=== PATIENT | male | born 1950 | race Caucasian/White ===

== ENCOUNTER 2022-12-09 13:54 | Outpatient (OUT) | payer MEDICARE, OTHER, SELFPAY ==
--- NOTE | 2022-12-09 13:57 | US_ITS ---
The [address] [address] Patient Name: NANCY WALLS MRN: [id number] date: 1950 Sex: M Assigned Patient Location: US Current Patient Location: US Accession/Order Number: [id number] Exam Date: 12/09/2022 14:00 Report Date: 12/12/2022 09:04 At the request of: BENIGNO ZALDIVAR Procedure: US scrotum doppler EXAM: US scrotum doppler HISTORY: Epididymal cyst N50.3 COMPARISON: None. TECHNIQUE: Grayscale, color and Doppler FINDINGS: The right testicle is normal in size, contour and homogeneous echotexture measuring 4.4 x 2.1 x 3.2 cm. No focal mass. Normal color and Doppler flow The right epididymis is normal in appearance. No right hydrocele or varicocele. The left testicle is normal in size, contour and homogeneous echotexture measuring 4.5 x 2.3 x 3.0 cm. No focal mass. Normal color and Doppler flow The left epididymis is significant for a 7 mm area of anechoic echogenicity, epididymal cyst. No left hydrocele or varicocele. US/US scrotum doppler IMPRESSION: 7 mm left epididymal cyst Electronically authenticated by: NASEEM STEEN Date: 12/12/2022 09:04
== END 2022-12-09 13:55 | disposition home or self-care (01) ==
LOC: US 13:54
PROVIDERS: PCP Family Medicine; Visit Provider Family Medicine
DX: N50.3 Cyst of epididymis (principal)
CPT/HCPCS: 76870; 93976

== ENCOUNTER 2022-12-21 10:28 | Outpatient (OUT) | payer MEDICARE, OTHER, SELFPAY ==
[2022-12-22 11:09] LABS: PSA, Free 0.83 ng/mL; Prostate Specific Ag 4.8 ng/mL (0.0-4.0)
== END 2022-12-21 10:29 | disposition home or self-care (01) ==
LOC: LAB 10:29
PROVIDERS: PCP Family Medicine
DX: N40.1 Benign prostatic hyperplasia with lower urinary tract symptoms (principal); R97.20 Elevated prostate specific antigen [PSA]
CPT/HCPCS: 36415; 84153; 84154

== ENCOUNTER 2023-10-05 11:01 | Outpatient (OUT) | payer MEDICARE, OTHER, SELFPAY ==
[2023-10-07 07:08] LABS: QuantiFERON-TB Gold Plus Negative (Negative)
== END 2023-10-05 11:02 | disposition home or self-care (01) ==
LOC: LAB 11:03
PROVIDERS: PCP Family Medicine
DX: L40.0 Psoriasis vulgaris (principal)
CPT/HCPCS: 36415; 86480

== ENCOUNTER 2024-01-04 10:06 | Outpatient (OUT) | payer MEDICARE, SELFPAY ==
--- OUTSIDE RECORDS SUMMARY | 2024-01-04 10:16 | XMS_ITS | CCD ---
Author Organization [facility] Care Team Providers Care Glass Sagger Name Role Phone PHYSICIAN, DEFAULT Unavailable Unavailable PHYSICIAN, DEFAULT Unavailable Unavailable SKIE, ROHIT Unavailable Unavailable SKIE, ROHIT Unavailable Unavailable HOY, BENIGNO Unavailable Unavailable HOY BENIGNO Unavailable Unavailable NC Unavailable Unavailable SKIE, ROHIT Unavailable Unavailable NC Unavailable Unavailable DELMACHRISTIANO ROBERTSSHI Unavailable Unavailable Benigno Escobar Primary Care Physician MD Benigno Escobar Primary Care Provider [phone] MD Geovanni Cuenca Jr Attending Provider [phone] ZEN ., DR PELAEZ Admitting Unavailable HOY ., DR PELAEZ Attending Unavailable HOY ., DR PELAEZ Primary Care Unavailable HOY ., DR PELAEZ Consulting Unavailable MISC, DR CHAIREZ Admitting Unavailable MISC, DR CHAIREZ Attending Unavailable HOY ., DR PELAEZ Primary Care Unavailable MISC, DR CHAIREZ Consulting Unavailable HOY ., DR PELAEZ Admitting Unavailable HOY ., DR PELAEZ Attending Unavailable HOY ., DR PELAEZ Referring Unavailable HOY ., DR PELAEZ Primary Care Unavailable HOY ., DR PELAEZ Consulting Unavailable MISC, DR CHAIREZ Admitting Unavailable MISC, DR CHAIREZ Attending Unavailable HOY ., DR PELAEZ Primary Care Unavailable MISC, DR CHAIREZ Consulting Unavailable BANG CAROLINA ., DR EGOVANNI Bowen Admitting Unavaila ble BANG Singh, DR GEOVANNI Bowen Attending Unavaila ble ZEN ., DR PELAEZ Primary Care Unavailable BANG Singh, DR GEOVANNI Bowen Consulting Unavaila ble BANG Singh, DR GEOVANNI Bowen Admitting Unavaila ble BANG Singh, DR GEOVANNI Bowen Attending Unavaila ble ZEN ., DR PELAEZ Primary Care Unavailable BANG Singh, DR GEOVANNI Bowen Consulting Unavaila ble BANG Singh, DR GEOVANNI Bowen Admitting Unavaila ble BANG Singh, DR GEOVANNI Bowen Attending Unavaila ble ZEN ., DR PELAEZ Primary Care Unavailable BANG Singh, DR GEOVANNI Bowen Admitting Ellen Singh, DR GEOVANNI Bowen Attending Ellen Singh, DR PELAEZ Primary Care Unavailable BANG Singh, DR GEOVANNI Bowen Consulting UnavailGABI Leigh Consulting Unavailable ANILA POP Consulting Unavailable HENRY MARINO Attending Unavailable GENNARO CHAVES Attending Unavailable Allergies Allergy Classification Reported Allergen(s) Allergy Type Date of Onset Reaction(s) Facility (1 source) 61709,00; Translations: [00426,00] Propensity to adverse reactions (disorder) 9 [facility] Repository (1 source) No Known Medication Allergies; Translations: [No Known Medication Allergies] Propensity to adverse reactions (disorder) [facility] Repository Medications Current Medications Medication Drug Class(es) Dates Sig (Normalized) Sig (Original) acetaminophen 325 mg / oxyCODONE hydrochloride 5 mg oral tablet (1 source) Opioid Agonist Start: 07-04-2019 take 1 tablet by mouth every six hours Oxycodone-Acetamin ophen Active 1 TAB PO Q6H 10 July 04, 2019 8:05am ciprofloxacin 500 mg oral tablet (1 source) Quinolone Antimicrobial Start: 07-04-2019 take 500 mg by mouth every twelve hours Ciprofloxacin Hcl Active 500 MG PO Q12H July 04, 2019 8:05am lisinopril 10 mg oral tablet (5 sources) Angiotensin Converting Enzyme Inhibitor Start: 03-12-2019 take 1 mg by mouth once daily lisinopril 10 mg Tab mg tab(s), Oral, Daily Start Date: 03/12/19 Status: Ordered mirtazapine 30 mg oral tablet (5 sources) Start: 03-12-2019 take 1 mg by mouth once daily at bedtime mirtazapine 30 mg Tab mg tab(s), Oral, Once a day (at bedtime) Start Date: 03/12/19 Status: Ordered pantoprazole 40 mg delayed release oral tablet (5 sources) Proton Pump Inhibitor Start: 03-12-2019 take 1 mg by mouth once daily Pantoprazole [address] Tab mg tab(s), Oral, Daily Start Date: 03/12/19 Status: Ordered Start: 03-12-2019 take 1 mg by mouth once daily Pantoprazole [address] Tab mg tab(s), Oral, Daily Start Date: 03/12/19 Status: Ordered tamsulosin hydrochloride 0.4 mg oral capsule (1 source) alpha-Adrenergic Poonam Start: 06-24-2019 take 0.4 mg by mouth twice daily Tamsulosin Active 0.4 MG PO Twice daily June 24, 2019 6:05pm Problems Active Problems Problem Classification Problem Date Documented Date Episodic/Chronic Chronic obstructive pulmonary disease and bronchiectasis (4 sources) Bronchitis 05-09-2019 Episodic Diabetes mellitus without complication (1 source) Other abnormal glucose; Translations: [OTHER ABNORMAL GLUCOSE] Onset: 07-20-2022 Episodic Disorders of lipid metabolism (6 sources) Hyperlipidemia; Translations: [Pure hypercholesterolemia, unspecified] Onset: 07-20-2022 05-09-2019 Chronic Esophageal disorders (5 sources) Gastroesophageal reflux disease; Translations: [Gastro-esophageal reflux disease without esophagitis] Onset: 10-27-2021 05-09-2019 Chronic Essential hypertension (6 sources) Essential (primary) hypertension; Translations: [Hypertensive disorder] Onset: 07-17-2017 05-09-2019 Chronic Gastritis and duodenitis (4 sources) Gastritis 05-09-2019 Episodic Genitourinary symptoms and ill-defined conditions (15 sources) Dysuria; Translations: [Mihir hematuria] Onset: 10-27-2021 07-12-2019 Episodic Hyperplasia of prostate (10 sources) Benign prostatic hyperplasia without lower urinary tract symptoms; Translations: [Benign prostatic hypertrophy with outflow obstruction] Onset: 07-17-2017 Chronic Mycoses (4 sources) Tinea corporis 05-09-2019 Episodic Other aftercare (1 source) Other intermediate accountant (current) drug therapy; Translations: [OTH PRESSURE WELDER CURRENT DRUG THERAPY] Onset: 07-20-2022 Episodic Other connective tissue disease (4 sources) Dupuytren's contracture 05-09-2019 Episodic Other connective tissue disease (4 sources) Pain in buttock 02-25-2021 Episodic Other inflammatory condition of skin (4 sources) Psoriasis 05-09-2019 Chronic Other inflammatory condition of skin (4 sources) Psoriasis vulgaris; Translations: [PSORIASIS VULGARIS] Onset: 07-19-2022 Chronic Other lower respiratory disease (4 sources) Hemoptysis 05-09-2019 Episodic Other lower respiratory disease (1 source) Other forms of dyspnea; Translations: [OTHER FORMS OF DYSPNEA] Onset: 07-20-2022 Episodic Other male genital disorders (2 sources) Cyst of testis; Translations: [Benign cyst of testis] Onset: 12-26-2022 Episodic Other screening for suspected conditions (not mental disorders or infectious disease) (15 sources) Raised prostate specific antigen; Translations: [Elevated prostate specific antigen [PSA]] Onset: 09-04-2021 Episodic Other upper respiratory infections (4 sources) Sinusitis 05-09-2019 Chronic Otitis media and related conditions (4 sources) Otitis media 05-09-2019 Episodic Residual codes; unclassified (1 source) Insomnia, unspecified; Translations: [INSOMNIA UNSPECIFIED] Onset: 07-20-2022 Episodic Viral infection (4 sources) COVID-19; Translations: [COVID-19] Onset: 11-15-2021 Past or Other Problems Problem Classification Problem Date Documented Da te Episodic/Chronic Immunizations and screening for infectious disease (1 source) Encounter for immunization; Translations: [ENCOUNTER FOR IMMUNIZATION] Onset: 11-16-2021 Episodic Other connective tissue disease (4 sources) Palmar fascial fibromatosis [Dupuytren]; Translations: [PALMAR FASCIAL FIBROMATOSIS [DUPUYTREN]] Onset: 07-17-2017 Episodic Other diseases of kidney and ureters (1 source) Other obstructive and reflux uropathy; Translations: [OTHER OBSTRUCTIVE AND REFLUX UROPATHY] Onset: 10-20-2021 Episodic Other male genital disorders (3 sources) Disorder of prostate, unspecified; Translations: [DISORDER OF PROSTATE UNSPECIFIED] Onset: 10-20-2021 Episodic Other male genital disorders (1 source) Other specified disorders of prostate; Translations: [OTHER SPECIFIED DISORDERS PROSTATE] Onset: 10-27-2021 Episodic Unclassified (2 sources) Unknown / UNK(Unknown) Onset: 07-17-2017 Results Test Name Value Interpretation Reference Range Facility PSA, FREE AND TOTAL RATIOon 07-21-2022 % Free PSA 17.1 % Normal [facility] Comment on above: Result Comment: The table below lists the probability of prostate cancer for men with non-suspicious MEAGAN results and total PSA between 4 and 10 ng/mL, by patient age (Joanie et al, GIGI 1998, 279:1542). % Free PSA 50-64 yr 65-75 yr 0.00-10.00% 56% 55% 10.01-15.00% 24% 35% 15.01-20.00% 17% 23% 20.01-25.00% 10% 20% >25.00% 5% 9% Please note: Joanie et al did not make specific recommendations regarding the use of percent free PSA for any other population of men. Performed By: #### P SAD #### [facility] [address] [place] [address] Dr. Hemalatha Tran Prostate specific Ag [Mass/Vol] 4.9 ng/mL Critically high 0.0-4.0 [facility] Comment on above: Result Comment: Ruby LOPEZ methodology. . According to the [place] [employer], Serum PSA should decrease and remain at undetectable levels after radical prostatectomy. The AUA defines biochemical recurrence as an initial PSA value 0.2 ng/mL or greater followed by a subsequent confirmatory PSA value 0.2 ng/mL or greater. Values obtained with different assay methods or kits cannot be used interchangeably. Results cannot be interpreted as absolute evidence of the presence or absence of malignant disease. Performed By: #### P SAD #### [facility] [address] [place] [address] Dr. Hemalatha Tran PSA, Free 0.84 ng/mL Normal N/A [facility] Comment on above: Result Comment: Ruby red ECLIA methodology. Performed By: #### P SAD #### [facility] [address] [place] [address] Dr. Hemalatha Tran QUANTIFERON TB GOLD PLUSon 0 07-21-2022 QuantiFERON Criteria Comment Normal [facility] Comment on above: Result Comment: Elpidio tiFERON-TB Gold Plus is a qualitative indirect test for M tuberculosis infection (including disease) and is intended for use in conjunction with risk assessment, radiography, and other medical and diagnostic evaluations. The QuantiFERON-TB Gold Plus result is determined by subtracting the Nil value from either TB antigen (Ag) value. The Mitogen tube serves as a control for the test. Performed By: #### Q NTTB #### [facility] [address] [place] [address] Dr. Hemalatha Tran QuantiFERON Incubation Incubation performed. Normal [facility] Comment on above: Performed By: #### Q NTTB #### [facility] [address] [place] [address] Dr. Hemalatha Tran QuantiFERON Mitogen Value 3.25 IU/mL Normal [facility] Comment on above: Performed By: #### Q NTTB #### [facility] [address] [place] [address] Dr. Hemalatha Tran QuantiFERON Nil Value 0.00 IU/mL Normal [facility] Comment on above: Performed By: #### Q NTTB #### [facility] [address] [place] [address] Dr. Hemalatha Tran QuantiFERON TB1 Ag Value 0.00 IU/mL Normal [facility] Comment on above: Performed By: #### Q NTTB #### [facility] [address] [place] [address] Dr. Hemalatha Tran QuantiFERON TB2 Ag Value 0.00 IU/mL Normal [facility] Comment on above: Performed By: #### Q NTTB #### [facility] [address] [place] [address] Dr. Hemalatha Tran QuantiFERON-TB Gold Plus Negative Normal Negative [facility] Comment on above: Result Comment: No r esponse to M tuberculosis antigens detected. Infection with M tuberculosis is unlikely, but high risk individuals should be considered for additional testing (ATS/IDSA/CDC Clinical Practice Guidelines, 2017). The reference range is an Antigen minus Nil result of <0.35 IU/mL. Chemiluminescence immunoassay methodology Performed By: #### Q NTTB #### [facility] [address] [place] [address] Dr. Hemalatha Tran INSULINon 07-20-2022 Insulin 11.9 uIU/mL Normal 2.6-24.9 [facility] Comment on above: Performed By: #### P SAD #### [facility] [address] [place] [address] Dr. Hemalatha Tran CBC AUTO DIFFon 07-19-2022 BASO # 0.1 103/ul Normal 0.0-0.1 [facility] Comment on above: Performed By: #### C BC #### [facility] [address] [address] [address] Hemalatha Tran Basophils/100 WBC (Bld) 0.8 % Normal 0.2-2.0 [facility] Comment on above: Performed By: #### C BC #### [facility] [address] [place] [address] Dr. Hemalatha Tran EO # 0.1 103/ul Normal 0.0-0.7 [facility] Comment on above: Performed By: #### C BC #### [facility] [address] [place] [address] Dr. Hemalatha Tran Eosinophils/100 WBC (Bld) 1.2 % Normal 0.9-7.0 [facility] Comment on above: Performed By: #### C BC #### [facility] [address] [place] [address] Dr. Hemalatha Tran Erythrocyte distribution width (RBC) [Ratio] 13.1 % Normal 11.0-15.0 [facility] Comment on above: Performed By: #### C BC #### [facility] [address] [place] [address] Dr. Hemalatha Tran Hematocrit (Bld) [Volume fraction] 39.5 % Critically low 42.0-54.0 [facility] Comment on above: Performed By: #### C BC #### [facility] [address] [place] [address] Dr. Hemalatha Tran Hemoglobin (Bld) [Mass/Vol] 13.5 g/dL Critically low 14.0-18.0 [facility] Comment on above: Performed By: #### C BC #### [facility] [address] [place] [address] Dr. Hemalatha Tran IG # 0.02 10e3/ul Normal 0.00-0.03 [facility] Comment on above: Performed By: #### C BC #### [facility] [address] [place] [address] Dr. Hemalatha Tran IG % 0.3 % Normal 0.0-0.5 [facility] Comment on above: Performed By: #### C BC #### [facility] [address] [place] [address] Dr. Hemalatha Tran LYMPH # 0.9 103/ul Critically low 1.2-3.8 [facility] Comment on above: Performed By: #### C BC #### [facility] [address] [place] [address] Dr. Hemalatha Tran Lymphocytes/100 WBC (Bld) 14.0 % Critically low 20.5-60.0 [facility] Comment on above: Performed By: #### C BC #### [facility] [address] [place] [address] Dr. Hemalatha Tran MANUAL DIFF REQ NO Normal [facility] Comment on above: Performed By: #### C BC #### [facility] [address] [place] [address] Dr. Hemalatha Tran MCH (RBC) [Entitic mass] 29.5 pg Normal 25.9-34.0 [facility] Comment on above: Performed By: #### C BC #### [facility] [address] [place] [address] Dr. Hemalatha Tran MCHC (RBC) [Mass/Vol] 34.2 g/dL Normal 29.9-35.2 [facility] Comment on above: Performed By: #### C BC #### [facility] [address] [place] [address] Dr. Hemalatha Tran MCV (RBC) [Entitic vol] 86.4 fL Normal 80.0-94.0 [facility] Comment on above: Performed By: #### C BC #### [facility] [address] [place] [address] Dr. Hemalatha Tran MONO # 0.6 103/ul Normal 0.3-0.8 [facility] Comment on above: Performed By: #### C BC #### [facility] [address] [place] [address] Dr. Hemalatha Tran Monocytes/100 WBC (Bld) 8.6 % Normal 1.7-12.0 [facility] Comment on above: Performed By: #### C BC #### [facility] [address] [place] [address] Dr. Hemalatha Tran NEUT # 4.8 103/ul Normal 1.4-6.5 [facility] Comment on above: Performed By: #### C BC #### [facility] [address] [address] [address] Hemalatha Tran Neutrophils/100 WBC (Bld) 75.1 % Critically high 43.0-75.0 [facility] Comment on above: Performed By: #### C BC #### [facility] [address] [place] [address] Dr. Hemalatha Tran Platelet mean volume (Bld) [Entitic vol] 9.9 fL Normal 9.5-13.5 [facility] Comment on above: Performed By: #### C BC #### [facility] [address] [place] [address] Dr. Hemalatha Tran PLT 239 103/ul Normal 150-450 [facility] Comment on above: Performed By: #### C BC #### [facility] [address] [place] [address] Dr. Hemalatha Tran RBC 4.57 106/ul Critically low 4.70-6.10 [facility] Comment on above: Performed By: #### C BC #### [facility] [address] [place] [address] Dr. Hemalatha Tran WBC 6.4 103/ul Normal 4.0-11.0 [facility] Comment on above: Performed By: #### C BC #### [facility] [address] [place] [address] Dr. Hemalatha Tran FREE THYROXINE INDEX T7on FTI 2.35 Normal 1.30-4.50 [facility] Comment on above: Performed By: #### T SH, URIC, LIPID, CMP, T7 #### [facility] [address] [place] [address] Dr. Hemalatha Tran T3U 34.0 % Normal 33.0-40.0 [facility] Comment on above: Performed By: #### T SH, URIC, LIPID, CMP, T7 #### [facility] [address] [place] [address] Dr. Hemalatha Tran T4 [Mass/Vol] 6.90 ug/dL Normal 4.50-12.10 [facility] Comment on above: Performed By: #### T SH, URIC, LIPID, CMP, T7 #### [facility] [address] [address] [address] Hemalatha Tran GLYCOHEMOGLOBIN A1Con 2022 ADA RECOMMENDATION SEE BELOW Normal [facility] Comment on above: Result Comment: ADA RECOMMENDED LIMIT 4.0 - 6.0 ADA THERAPEUTIC TARGET < 7.0 ACTION SUGGESTED > 7.0 Performed By: #### P SAD #### [facility] [address] [address] [address] Hemalatha Tran Glucose [Mass/Vol] 111 mg/dL Normal [facility] Comment on above: Performed By: #### P SAD #### [facility] [address] [address] [address] Hemalatha Tran HbA1c (Bld) [Mass fraction] 5.5 % Normal 4.5-6.2 [facility] Comment on above: Performed By: #### P SAD #### [facility] [address] [address] [address] Hemalatha Tran LIPID PROFILEon 07-19-2022 CHOL-HDL RATIO NORM SEE BELOW Normal [facility] Comment on above: Result Comment: 3.3 - 4.4 LOW RISK 4.4 - 7.1 AVERAGE RISK 7.1 - 11.0 MODERATE RISK >11.0 HIGH RISK Performed By: #### T SH, URIC, LIPID, CMP, T7 #### [facility] [address] [address] [address] Hemalatha Tran Cholesterol [Mass/Vol] 250 mg/dL Critically high <=200 [facility] Comment on above: Performed By: #### T SH, URIC, LIPID, CMP, T7 #### [facility] [address] [address] [address] Hemalatha Tran Cholesterol in HDL [Mass/Vol] 56 mg/dL Normal 40-60 [facility] Comment on above: Performed By: #### T SH, URIC, LIPID, CMP, T7 #### [facility] [address] [address] [address] Hemalatha Tran Cholesterol in LDL [Mass/Vol] 182.0 mg/dL Normal [facility] Comment on above: Performed By: #### T SH, URIC, LIPID, CMP, T7 #### [facility] [address] [address] [address] Hemalatha Tran Cholesterol.total/Ch olesterol in HDL [Mass ratio] 4.5 {ratio} Normal [facility] Comment on above: Performed By: #### T SH, URIC, LIPID, CMP, T7 #### [facility] [address] [address] [address] Hemalatha Tran HDL NORMAL > or = 60 mg/dl - LO W CARDIOVASCULAR RISK <40 mg/dl - HIGH CARDIOVASCULAR RISK Normal [facility] Comment on above: Performed By: #### T SH, URIC, LIPID, CMP, T7 #### [facility] [address] [address] [address] Hemalatha Tran LDL CALC NORMAL SEE BELOW Normal [facility] Comment on above: Result Comment: <100 mg/dl OPTIMAL 100 - 129 mg/dl NEAR OR ABOVE OPTIMAL 130 - 159 mg/dl BORDERLINE HIGH 160 - 189 mg/dl HIGH >190 mg/dl VERY HIGH Performed By: #### T SH, URIC, LIPID, CMP, T7 #### [facility] [address] [address] [address] Hemalatha Tran Triglyceride [Mass/Vol] 60 mg/dL Normal <=150 [facility] Comment on above: Performed By: #### T SH, URIC, LIPID, CMP, T7 #### [facility] [address] [address] [address] Hemalatha Tran VLDL CALC 12.0 mg/dL Normal [facility] Comment on above: Performed By: #### T SH, URIC, LIPID, CMP, T7 #### [facility] [address] [address] [address] Hemalatha Tran PROF 14(COMP METB)on 023 Albumin [Mass/Vol] 4.0 g/dL Normal 3.4-5.0 [facility] Comment on above: Performed By: #### T SH, URIC, LIPID, CMP, T7 #### [facility] [address] [address] [address] Hemalatha Tran Albumin/Globulin [Mass ratio] 1.1 {ratio} Normal [facility] Comment on above: Performed By: #### T SH, URIC, LIPID, CMP, T7 #### [facility] [address] [address] [address] Hemalatha Tran ALP [Catalytic activity/Vol] 80 U/L Normal 46-116 [facility] Comment on above: Performed By: #### T SH, URIC, LIPID, CMP, T7 #### [facility] [address] [place] [address] Dr. Hemalatha Tran ALT [Catalytic activity/Vol] 36 U/L Normal 16-63 [facility] Comment on above: Performed By: #### T SH, URIC, LIPID, CMP, T7 #### [facility] [address] [place] [address] Dr. Hemalatha Tran Anion gap [Moles/Vol] 10.1 mmol/L Normal [facility] Comment on above: Performed By: #### T SH, URIC, LIPID, CMP, T7 #### [facility] [address] [place] [address] Dr. Hemalatha Tran AST [Catalytic activity/Vol] 22 U/L Normal 15-37 [facility] Comment on above: Performed By: #### T SH, URIC, LIPID, CMP, T7 #### [facility] [address] [address] [address] Hemalatha Tran Bilirubin [Mass/Vol] 0.6 mg/dL Normal 0.2-1.0 [facility] Comment on above: Performed By: #### T SH, URIC, LIPID, CMP, T7 #### [facility] [address] [place] [address] Dr. Hemalatha Tran Calcium [Mass/Vol] 9.2 mg/dL Normal 8.5-10.1 [facility] Comment on above: Performed By: #### T SH, URIC, LIPID, CMP, T7 #### [facility] [address] [address] [address] Hemalatha Tran Chloride [Moles/Vol] 103 mmol/L Normal 98-107 [facility] Comment on above: Performed By: #### T SH, URIC, LIPID, CMP, T7 #### [facility] [address] [address] [address] Hemalatha Tran CO2 [Moles/Vol] 29.2 mmol/L Normal 21.0-32.0 [facility] Comment on above: Performed By: #### T SH, URIC, LIPID, CMP, T7 #### [facility] [address] [address] [address] Hemalatha Tran Creatinine [Mass/Vol] 1.24 mg/dL Normal 0.70-1.30 [facility] Comment on above: Performed By: #### T SH, URIC, LIPID, CMP, T7 #### [facility] [address] [place] [address] Dr. Hemalatha Tran EGFR-AF BELARUSIAN >60 Normal >=60 [facility] Comment on above: Performed By: #### T SH, URIC, LIPID, CMP, T7 #### [facility] [address] [address] [address] Hemalatha Tran EGFR-NON AF BELARUSIAN 57 mL/min/1.73m2 Critically low >=60 [facility] Comment on above: Performed By: #### T SH, URIC, LIPID, CMP, T7 #### [facility] [address] [address] [address] Hemalatha Tran Globulin (S) [Mass/Vol] 3.6 g/dL Normal [facility] Comment on above: Performed By: #### T SH, URIC, LIPID, CMP, T7 #### [facility] [address] [address] [address] Hemalatha Tran Glucose [Mass/Vol] 107 mg/dL Critically high 74-106 [facility] [facility] Comment on above: Performed By: #### T SH, URIC, LIPID, CMP, T7 #### [facility] [address] [address] [address] Hemalatha Tran Potassium [Moles/Vol] 4.3 mmol/L Normal 3.5-5.1 [facility] Comment on above: Performed By: #### T SH, URIC, LIPID, CMP, T7 #### [facility] [address] [place] [address] Dr. Hemalatha Tran Protein [Mass/Vol] 7.6 g/dL Normal 6.4-8.2 [facility] Comment on above: Performed By: #### T SH, URIC, LIPID, CMP, T7 #### [facility] [address] [place] [address] Dr. Hemalatha Tran Sodium [Moles/Vol] 138 mmol/L Normal 136-145 [facility] Comment on above: Performed By: #### T SH, URIC, LIPID, CMP, T7 #### [facility] [address] [place] [address] Dr. Hemalatha Tran Urea nitrogen [Mass/Vol] 17.0 mg/dL Normal 7.0-18.0 [facility] Comment on above: Performed By: #### T SH, URIC, LIPID, CMP, T7 #### [facility] [address] [place] [address] Dr. Hemalatha Tran Urea nitrogen/Creatinine [Mass ratio] 13.7 mg/mg Normal [facility] Comment on above: Performed By: #### T SH, URIC, LIPID, CMP, T7 #### [facility] [address] [place] [address] Dr. Hemalatha Tran TSHon 07-19-2022 TSH 1.489 uIU/mL Normal 0.358-3.740 [facility] Comment on above: Performed By: #### T SH, URIC, LIPID, CMP, T7 #### [facility] [address] [place] [address] Dr. Hemalatha Tran URIC ACID SERUMon 07-19-2022 Urate [Mass/Vol] 6.6 mg/dL Normal 3.5-7.2 [facility] Comment on above: Performed By: #### T SH, URIC, LIPID, CMP, T7 #### [facility] [address] [place] [address] Dr. Hemalatha Tran QUANTIFERON TB GOLD PLUSon 0 01-22-2022 QuantiFERON Criteria Comment Normal [facility] Comment on above: Result Comment: Elpidio tiFERON-TB Gold Plus is a qualitative indirect test for M tuberculosis infection (including disease) and is intended for use in conjunction with risk assessment, radiography, and other medical and diagnostic evaluations. The QuantiFERON-TB Gold Plus result is determined by subtracting the Nil value from either TB antigen (Ag) value. The Mitogen tube serves as a control for the test. Performed By: #### Q NTTB #### [facility] [address] [place] [address] Dr. Hemalatha Tran QuantiFERON Incubation Incubation performed. Normal [facility] Comment on above: Performed By: #### Q NTTB #### [facility] [address] [place] [address] Dr. Hemalatha Tran QuantiFERON Mitogen Value >10.00 Normal [facility] Comment on above: Performed By: #### Q NTTB #### [facility] [address] [place] [address] Dr. Hemalatha Tran QuantiFERON Nil Value 0.02 IU/mL Normal [facility] Comment on above: Performed By: #### Q NTTB #### [facility] [address] [place] [address] Dr. Hemalatha Tran QuantiFERON TB1 Ag Value 0.03 IU/mL Normal [facility] Comment on above: Performed By: #### Q NTTB #### [facility] [address] [place] [address] Dr. Hemalatha Tran QuantiFERON TB2 Ag Value 0.02 IU/mL Normal [facility] Comment on above: Performed By: #### Q NTTB #### [facility] [address] [place] [address] Dr. Hemalatha Tran QuantiFERON-TB Gold Plus Negative Normal Negative [facility] Comment on above: Result Comment: No r esponse to M tuberculosis antigens detected. Infection with M tuberculosis is unlikely, but high risk individuals should be considered for additional testing (ATS/IDSA/CDC Clinical Practice Guidelines, 2017). The reference range is an Antigen minus Nil result of <0.35 IU/mL. Chemiluminescence immunoassay methodology Performed By: #### Q NTTB #### [facility] [address] [address] [address] Hemalatha Tran PROF CHEM 8 (BAS METB)on Anion gap [Moles/Vol] 13.9 mmol/L Normal [facility] Comment on above: Performed By: #### P SAD #### [facility] [address] [place] [address] Dr. Hemalatha Tran Calcium [Mass/Vol] 8.7 mg/dL Normal 8.5-10.1 [facility] Comment on above: Performed By: #### P SAD #### [facility] [address] [place] [address] Dr. Hemalatha Tran Chloride [Moles/Vol] 103 mmol/L Normal 98-107 [facility] Comment on above: Performed By: #### P SAD #### [facility] [address] [place] [address] Dr. Hemalatha Tran CO2 [Moles/Vol] 26.8 mmol/L Normal 21.0-32.0 [facility] Comment on above: Performed By: #### P SAD #### [facility] [address] [place] [address] Dr. Hemalatha Tran Creatinine [Mass/Vol] 1.35 mg/dL Critically high 0.70-1.30 [facility] Comment on above: Performed By: #### P SAD #### [facility] [address] [place] [address] Dr. Hemalatha Tran EGFR-AF BELARUSIAN >60 Normal >=60 [facility] Comment on above: Performed By: #### P SAD #### [facility] [address] [address] [address] Hemalatha Tran EGFR-NON AF BELARUSIAN 52 mL/min/1.73m2 Critically low >=60 [facility] Comment on above: Performed By: #### P SAD #### [facility] [address] [place] [address] Dr. Hemalatha Tran Glucose [Mass/Vol] 119 mg/dL Critically high 74-106 [facility] Comment on above: Performed By: #### P SAD #### [facility] [address] [address] [address] Hemalatha Tran Potassium [Moles/Vol] 3.7 mmol/L Normal 3.5-5.1 [facility] Comment on above: Performed By: #### P SAD #### [facility] [address] [address] [address] Hemalatha Tran Sodium [Moles/Vol] 140 mmol/L Normal 136-145 [facility] Comment on above: Performed By: #### P SAD #### [facility] [address] [address] [address] Hemalatha Tran Urea nitrogen [Mass/Vol] 16.0 mg/dL Normal 7.0-18.0 [facility] Comment on above: Performed By: #### P SAD #### [facility] [address] [address] [address] Hemalatha Tran Urea nitrogen/Creatinine [Mass ratio] 11.9 mg/mg Normal [facility] Comment on above: Performed By: #### P SAD #### [facility] [address] [address] [address] Hemalatha Tran MR prostate wo/w conon 09-27 MR prostate wo/w con [facility] [place] [address] MRI Report Signed Patient: Jun Walls MR#: [id number] : 1950 Acct:[id number] Age/Sex: 70 / M ADM Date: 09/23/21 Loc: MR Room: Type: [facility] Attending Dr: Geovanni Cuenca Jr, MD Ordering Provider: Geovanni Cuenca Jr, MD, FACS Date of Service: 09/23/21 MR/MR prostate wo/w con: ELEVATED PSA Copies to: Geovanni Cuenca Jr, MD, FACS EXAMINATION: MR prostate wo/w con HISTORY: Elevated PSA. BPH status post TURP. COMPARISON: NONE TECHNIQUE: Multiparametric imaging of the prostate gland was performed with IV contrast. FINDINGS: Prostate Dimensions: 5.5 x 5.4 x 6.0 cm Prostate Volume: 93 mL Peripheral Zone: Heterogenous and T2 signal suggestive of prior prostatitis. A focal area of T2 hypointensity is identified involving the posterior aspect of the peripheral zone at the level of the mid gland midline measuring 6 x 4 mm with associated restricted diffusion and low ADC value. Please see series 5 image 18, series 650 image 18 and series 600 image 18. A presumed extruded BPH nodule is seen involving the posterior aspect of the right peripheral zone at the level of the base. Central/Transitional Zone: BPH changes, status post TURP. No focal T2 or ADC map abnormality is identified to suggest prostate malignancy. Seminal Vesicles: Unremarkable Neurovascular bundles: Unremarkable. Lymphadenopathy: No evidence of lymphadenopathy. Bladder: The bladder is unremarkable. Bowel: Diverticulosis. Peritoneal Cavity: No free fluid. Bones: Heterogenous and bone marrow signal. No focal suspicious lesion is seen. MR/MR prostate wo/w con IMPRESSION: 1. A focal area of T2 hypointensity is identified involving the posterior aspect of the peripheral zone at the level of the mid gland midline measuring 6 x 4 mm with associated restricted diffusion and low ADC value. Please see series 5 image 18, series 650 image 18 and series 600 image 18. PI- RADS 4. Targeting of this region on biopsy is recommended. 2. BPH changes. Impression dictated by: Bobby Diehl Jr., D.OFrancisco09/27/2021 2:21 PM Dictation Location: [address] [address] Transcribed By: [facility] 09/27/21 1421 Dictated By: Bobby Diehl Jr, DO 09/27/21 1407 Signed By: 09/27/21 1421 Normal [facility] ISTAT XRay CREon 09-23-2021 Creatinine [Mass/Vol] 1.3 mg/dL Normal 0.6-1.3 [facility] Comment on above: Result Comment: ER/E SD physician is notified/shown all ISTAT results. Critical values may be confirmed by laboratory testing if deemed necessary by ER attending doctor. Performed By: #### I SCRE #### [address] Point of Care testing , ISTAT GFR ( > 60 Normal [facility] Comment on above: Result Comment: GFR estimated reference range: According to KDOQI guidelines, <60 ml/min/1.73m2 is sufficient to diagnose a patient with chronic kidney disease. PERFORMED BY: [place] [address] PATHOLOGIST [employer] ANALYST MELVI WELDON M.D. Performed By: #### I SCRE #### [facility] [address] [place] [address] Point of Care testing , ISTAT GFR (Non- Am 54 Normal [facility] Comment on above: Performed By: #### I SCRE #### [facility] [address] [place] [address] Point of Care testing , Operative Reporton 8 Operative Report MR#: [id number] [facility] Pt. Name: Jun Walls Room #: 0C Discharge Date: Birthdate: 1950 OPERATIVE REPORTDATE OF SURGERY: 07/17/2017SURGEON: Rohit Vazquez M.D.PREOPERATIVE DIAGNOSIS: Dupuytren's contracture of left long and smallfingers.POSTOPERA TIVE DIAGNOSIS: Dupuytren's contracture of left long and smallfingers.PROCEDURE S: Partial palmar fasciectomy involving the palm only on the leftlong and small fingers.TANK PUMPER: Dr. Ajith Amador.ANESTHESIA: Regional with an axillary block.INDICATION FOR SURGERY: Mr. Walls is a 66-year-old gentleman whom we havebeen treating for Dupuytren's disease in his left hand. He has undergone apartial palmar fasciectomy on the ring finger several years ago and didreally well following that. He has about a 35 to 40 degree MP contractureof the small finger, which is bothersome. He has about a 20 degreecontracture now with a long finger with a small pretendinous cord. He wasbrought in today predominantly for the small finger, but as we are going,we felt that excision of the cords of the long finger to prevent acontracture from worsening was indicated as well. The risks and benefitsare explained prior to surgery and with good understanding, it is agreed toproceed.NARRATION: The patient is brought to the operating room and placed on theoperating table in the supine position. An axillary block had beenadministered per the Anesthesia Service in the holding area. A tourniquetwas placed around the proximal left arm and the left upper extremity isprepped and draped out in a sterile manner. To begin the procedure, afterstandard time-out, the arm was exsanguinated with an Esmarch bandage andthe tourniquet was inflated to 250 mmHg. Using a #15 blade, we made aBrunner type incision along the cord on the small finger extending actuallyout to the PIP joint flexion crease. Blunt dissection was carried outthrough the subcutaneous tissue. At some points, the skin was sharplyelevated off the cord. As we gained exposure, the neurovascular bundleswere identified on either side of the digit. Those were protected. Theydo not become involved with the cord to any significant amount nor theydisplaced. Once we had the cord dissected free, we transected it at themost proximal end of our dissection. It was then dissected out fromproximal to distal. As it was removed, the contracture completely releasedwithout any problem. We looked at the neurovascular structures one lasttime to make sure that they were fine. Once we were satisfied with that,we went over to the long finger. One triangular flap was elevated,basically centered over the mid palmar crease. The flap was sharplydissected off the pretendinous cord. Again, we found the neurovascularstructure s, but they are well away from where we were working. The cordwas transected at its most proximal end and we worked from proximal todistal. The cord was involved with the flexor sheath and is adherent tothe A1 donte. Once we got out there, we were able to create a planebetween the A1 donte and the cord, so we did not resect the donte. Thecord was resected distally. The MP contracture was completely eliminated.The wounds were irrigated with normal saline solution. The tourniquetreleased at this point in time. Both fingers pinked up immediately. Wegot a little bit of hemostasis with the Bovie. There was very minimalbleeding at time of closure. The skin was closed with interrupted 5-0Novafil suture. A sterile dressing of Xeroform gauze, 4 x 4, fluffs,Kerlix, and Lino bandage were applied. The drapes were removed. He isbrought to the recovery area in stable condition having tolerated theprocedure well.Electronically Signed by:Rohit Vazquez M.D. 07/19/2017 03:13 P Rohit Vazquez M.D.Date Dict: 07/17/2017/04:10 P/Rohit Vazquez M.D.Date Trans: 07/17/2017 09:12 P/[id number]: Benigno Escobar M.D. [address], [facility] [address] Normal [facility] POC GLUCOSE LABon 07-17-2017 Glucose mass conc 110 mg/dL High 70-100 [facility] Comment on above: Performed By: #### 8 [address]99 ####[address] [address] MARY CELESTE[address] Vital Signs Date Time Vital Sign Value Performing Clinician Richardi alysia 12-26-2022 13:15-0400 Blood Pressure Location Jacoby SERRATO [facility] 12-26-2022 13:15-0400 Diastolic blood pressure 70 mm[Hg] Jacoby SERRATO [facility] 12-26-2022 13:15-0400 Heart rate 68 /min Jacoby SERRATO [facility] 12-26-2022 13:15-0400 Respiratory rate 16 /min Jacoby SERRATO [facility] 12-26-2022 13:15-0400 Systolic blood pressure 130 mm[Hg] Jacoby SERRATO [facility] 11-09-2021 11:13-0400 Blood Pressure Location Geovanni Cuenca Jr. [facility] 11-09-2021 11:13-0400 Diastolic blood pressure 82 mm[Hg] Geovanni Cuenca Jr. [facility] 11-09-2021 11:13-0400 Heart rate 76 /min Geovanni Cuenca Jr. [facility] 11-09-2021 11:13-0400 Systolic blood pressure 140 mm[Hg] Geovanni Cuenca Jr. [facility] 10-05-2021 09:48-0400 Diastolic blood pressure 92 mm[Hg] Geovanni Cuenca Jr. [facility] 10-05-2021 09:48-0400 Mean blood pressure 110 mm[Hg] Geovanni Cuenca Jr. [facility] 10-05-2021 09:48-0400 Systolic blood pressure 145 mm[Hg] Geovanni Cuenca Jr. [facility] 10-05-2021 09:46-0400 Blood Pressure Location Geovanni Cuenca Jr. [facility] 10-05-2021 09:46-0400 Diastolic blood pressure 96 mm[Hg] Geovanni Cuenca Jr. [facility] 10-05-2021 09:46-0400 Heart rate 72 /min Geovanni Cuenca Jr. [facility] 10-05-2021 09:46-0400 Respiratory rate 16 /min Geovanni Cuenca Jr. [facility] 10-05-2021 09:46-0400 Systolic blood pressure 155 mm[Hg] Geovanni Cuenca Jr. [facility] 09-07-2021 08:18-0400 Blood Pressure Location Geovanni Cuenca Jr. [facility] 09-07-2021 08:18-0400 Diastolic blood pressure 96 mm[Hg] Geovanni Cuenca Jr. [facility] 09-07-2021 08:18-0400 Heart rate 58 /min Geovanni Cuenca Jr. [facility] 09-07-2021 08:18-0400 Systolic blood pressure 148 mm[Hg] Geovanni Cuenca Jr. [facility] Encounters Encounter Date Encounter Type Care Provider Facility Start: 01-11-2024 ambulatory GENNARO Shetty ty:YVON Jacques Start: 10-05-2023 End: 10-05-2023 ambulatory HENRY MARINO Not Available Start: 12-26-2022 End: 12-26-2022 Patient encounter procedure Jacoby R ROJELIO [facility] Start: 07-19-2022 End: 07-20-[address] DOCTOR HERNANDEZ Facility:[facility] Start: 01-20-2022 End: 01-21-[address] DOCTOR HERNANDEZ Facility:[facility] Start: 11-15-2021 End: 11-15-[address] BENIGNO ESCOBAR . Facility:[facility] Start: 11-09-2021 End: 11-09-2021 Patient encounter procedure Geovanni Cuenca Jr. [facility] Start: 10-20-2021 End: 10-20-[address] GEOVANNI Singh Facility:[facility] Start: 10-20-2021 Encounter for preprocedural cardiovascular examination DR GEOVANNI Singh [facility] Start: 10-20-2021 Encounter for preprocedural laboratory examination DR GEOVANNI Singh [facility] Start: 10-16-[address] GEOVANNI Singh Facility:[facility] Start: 10-14-2021 End: 10-15-[address] GEOVANNI Singh Facility:[facility] Start: 10-14-2021 End: 10-15-2021 Encounter for preprocedural laboratory examination DR GEOVANNI Singh Facility:[facility] Start: 10-05-2021 End: 10-05-2021 Patient encounter procedure Geovanni Cuenca Jr. [facility] Start: 09-23-2021 End: 09-23-2021 Patient encounter procedure MD Benigno Escobar Work Phone: [facility] Start: 09-07-2021 End: 09-07-2021 Patient encounter procedure Geovanni Cuenca Jr. [facility] Start: 09-04-2021 End: 09-05-[address] GEOVANNI Singh Facility: Start: 07-17-2017 End: 07-18-2017 Ambulatory [facility] Facility:[facility] Start: 05-29-2017 Patient encounter status MD Jo Work Phone: [facility] Start: 04-05-2017 End: 04-06-2017 Ambulatory DEFAULT PHYSICIAN Facility:[facility] Procedures Date Procedure Procedure Detail Performing Clinician Start: 07-19-[address] SUDEEP ESCOBAR . Comment on above: Performed By: #### P SASC #### [facility] [address] [place] [address] Dr. Hemalatha Tran Start: 10-20-2021 MRI-US fusion guided transperineal biopsy of prostate Jacoby ROJELIO Start: 09-04-[address] SUDEEP ESCOBAR . Comment on above: Performed By: #### P SAD #### [facility] [address] [place] [address] Dr. Hemalatha Tran Start: 07-03-2019 Transurethral prostatectomy Geovanni Cuenca Jr. Start: 07-19-2018 Cystoscopy Geovanni navarro Jr. Start: 07-17-2017 ANESTH LOWER ARM SURGERY CIELOISABELL NGUYỄN Start: 07-17-2017 RELEASE PALM CONTRACTURE ROHIT [facility] Start: 10-04-2013 Transrectal biopsy o f prostate using ultrasound guidance Geovanni Cuenca Jr. Endoscopy and biopsy of upper gastrointestinal tract Geovanni Cuenca Jr. Procedure on hand Geovanni navarro Jr. Plan of Treatment Date Care Activity Detail Author Start: 09-23-2021 MR prostate wo/w con MR prostate wo/ w con [facility] Immunizations Immunization Date Immunization Notes Care Provider Martha knapp 10-07-2021 SARS-CoV-2 mRNA (nngfbsbcqcc-pitq-vqud ose) vaccine Jacoby SERRATO [facility] Comment on above: Result Comment: 2022: TPV70 09-16-2021 SARS-CoV-2 mRNA (icdlcoapdbq-ylme-yqlw ose) vaccine Jacoby SERRATO [facility] Comment on above: Result Comment: 2022: TPV70 NEGATED: Highlighted row has not occurred!09-07-2021 SARS-CoV-2 (COVID-19) Ad26 vaccine, recombinant Geovanni Cuenca [facility] Payers Date Payer Category Payer Medicare [id number] 1961 Unknown [id number] 1950 Unknown [id number] 2.16.84 [id number] 1950 Unknown [id number] 2.16.84 [id number] 1950 Unknown [id number] 2.16.84 [id number] 1950 Unknown [id number] 2.16.84 [id number] 1950 Unknown [id number] 2.16.84 [id number] 1950 Unknown [id number] 2.16.84 [id number] 1950 Unknown [id number] 2.16.84 [id number] 1950 Unknown [id number] 2.16.84 [id number] 1950 Unknown [id number] 2.16.84 [id number] 1950 Unknown [id number] 2.16.8 [id number] Self-pay Self Pay [id number] Unknown [id number] Unknown Social History Date Type Detail Facility Start: 09-07-2021 End: 12-26-2022 Tobacco smoking status Never smoked tobacco (finding) [facility] Tobacco smoking status Never [facility] Sex Assigned At Male [facility] Start: 1950 Sex Assigned At Male [facility] Functional Status Date Assessment Result Facility 12-26-2022 Functional Status N/A [facility] 11-09-2021 Functional Status N/A [facility] Discharge instructions 12-26-2022 Note Date & Type Note Facility 12-26-2022 Hospital Discharge instructions Patient Education 12/26/2022 14:24:32 Prostate Cancer Screening Prostate Cancer Screening Prostate cancer screening is testing that is done to check for the presence of prostate cancer in men. The prostate gland is a walnut-sized gland that is located below the bladder and in front of the rectum in males. The function of the prostate is to add fluid to semen during ejaculation. Prostate cancer is one of the most common types of cancer in men. Who should have prostate cancer screening? Screening recommendations vary based on age and other risk factors, as well as between the professional organizations who make the recommendations. In general, screening is recommended if: You are age 50 to 70 and have an average risk for prostate cancer. You should talk with your health care provider about your need for screening and how often screening should be done. Because most prostate cancers are slow growing and will not cause , screening in this age group is generally reserved for men who have a 10- to 15-year life expectancy. You are younger than age 50, and you have these risk factors: ?Having a father, brother, or uncle who has been diagnosed with prostate cancer. The risk is higher if your family member's cancer occurred at an early age or if you have multiple family members with prostate cancer at an early age. ?Being a male who is Black or is of [place] or sub-Saharan descent. In general, screening is not recommended if: You are younger than age 40. You are between the ages of 40 and 49 and you have no risk factors. You are 70 years of age or older. At this age, the risks that screening can cause are greater than the benefits that it may provide. If you are at high risk for prostate cancer, your health care provider may recommend that you have screenings more often or that you start screening at a younger age. How is screening for prostate cancer done? The recommended prostate cancer screening test is a blood test called the prostate-specific antigen (PSA) test. PSA is a protein that is made in the prostate. As you age, your prostate naturally produces more PSA. Abnormally high PSA levels may be caused by: Prostate cancer. An enlarged prostate that is not caused by cancer (benign prostatic hyperplasia, or BPH). This condition is very common in older men. A prostate gland infection (prostatitis) or urinary tract infection. Certain medicines such as male hormones (like testosterone) or other medicines that raise testosterone levels. A rectal exam may be done as part of prostate cancer screening to help provide information about the size of your prostate gland. When a rectal exam is performed, it should be done after the PSA level is drawn to avoid any effect on the results. Depending on the PSA results, you may need more tests, such as: A physical exam to check the size of your prostate gland, if not done as part of screening. Blood and imaging tests. A procedure to remove tissue samples from your prostate gland for testing (biopsy). This is the only way to know for certain if you have prostate cancer. What are the benefits of prostate cancer screening? Screening can help to identify cancer at an early stage, before symptoms start and when the cancer can be treated more easily. There is a small chance that screening may lower your risk of dying from prostate cancer. The chance is small because prostate cancer is a slow-growing cancer, and most men with prostate cancer from a different cause. What are the risks of prostate cancer screening? The main risk of prostate cancer screening is diagnosing and treating prostate cancer that would never have caused any symptoms or problems. This is called overdiagnosisand overtreatment. PSA screening cannot tell you if your PSA is high due to cancer or a different cause. A prostate biopsy is the only procedure to diagnose prostate cancer. Even the results of a biopsy may not tell you if your cancer needs to be treated. Slow-growing prostate cancer may not need any treatment other than monitoring, so diagnosing and treating it may cause unnecessary stress or other side effects. Questions to ask your health care provider When should I start prostate cancer screening? What is my risk for prostate cancer? How often do I need screening? What type of screening tests do I need? How do I get my test results? What do my results mean? Do I need treatment? Where to find more information [employer] [place] [employer]: www.cancer.org [employer] [employer]: www.auanet.org Contact a health care provider if: You have difficulty urinating. You have pain when you urinate or ejaculate. You have blood in your urine or semen. You have pain in your back or in the area of your prostate. Summary Prostate cancer is a common type of cancer in men. The prostate gland is located below the bladder and in front of the rectum. This gland adds fluid to semen during ejaculation. Prostate cancer screening may identify cancer at an early stage, when the cancer can be treated more easily and is less likely to have spread to other areas of the body. The prostate-specific antigen (PSA) test is the recommended screening test for prostate cancer, but it has associated risks. Discuss the risks and benefits of prostate cancer screening with your health care provider. If you are age 70 or older, the risks that screening can cause are greater than the benefits that it may provide. This information is not intended to replace advice given to you by your health care provider. Make sure you discuss any questions you have with your health care provider. Document Revised: 11/08/2021 Document Reviewed: 11/08/2021 [employer] Patient Education 2022 [employer]. Follow Up Care 11/09/2021 12:19:58 With:ROJELIO OWEN, Jacoby Henry, URL Address: [facility] [address] [place] [address]- [phone] When: Unknown Comments:1 yr w/ PSA [facility] [place] [facility] Discharge instructions 11-09-2021 Note Date & Type Note Facility 11-09-2021 Hospital Discharg e instructions Patient Education 11/09/2021 12:15:12 Prostate Cancer Screening Prostate Cancer Screening The prostate is a walnut-sized gland that is located below the bladder and in front of the rectum in males. The function of the prostate (prostate gland) is to add fluid to semen during ejaculation. Prostate cancer is the second most common type of cancer in men. A screening test for cancer is a test that is done before cancer symptoms start. Screening can help to identify cancer at an early stage, when the cancer can be treated more easily. The recommended prostate cancer screening test is a blood test called the prostate-specific antigen (PSA) test. PSA is a protein that is made in the prostate. As you age, your prostate naturally produces more PSA. Abnormally high PSA levels may be caused by: Prostate cancer. An enlarged prostate that is not caused by cancer (benign prostatic hyperplasia, BPH). This condition is very common in older men. A prostate gland infection (prostatitis). Medicines to assist with hair growth, such as finasteride. Depending on the PSA results, you may need more tests, such as: A physical exam to check the size of your prostate gland. Blood and imaging tests. A procedure to remove tissue samples from your prostate gland for testing (biopsy). Who should have screening? Screening recommendations vary based on age. If you are younger than age 40, screening is not recommended. If you are age 40 54 and you have no risk factors, screening is not recommended. If you are younger than age 55, ask your health care provider if you need screening if you have one of these risk factors: ?Being of -[place] descent. ?Having a family history of prostate cancer. If you are age 55 69, talk with your health care provider about your need for screening and how often screening should be done. If you are older than age 70, screening is not recommended. This is because the risks that screening can cause are greater than the benefits that it may provide (risks outweigh the benefits). If you are at high risk for prostate cancer, your health care provider may recommend that you have screenings more often or start screening at a younger age. You may be at high risk if you: Are older than age 55. Are -[place]. Have a father, brother, or uncle who has been diagnosed with prostate cancer. The risk may be higher if your family member's cancer occurred at an early age. What are the benefits of screening? There is a small chance that screening may lower your risk of dying from prostate cancer. The chance is small because prostate cancer is typically a slow-growing cancer, and most men with prostate cancer from a different cause. What are the risks of screening? The main risk of prostate cancer screening is diagnosing and treating prostate cancer that would never have caused any symptoms or problems (overdiagnosis and overtreatment). PSA screening cannot tell you if your PSA is high due to cancer or a different cause. A prostate biopsy is the only procedure to diagnose prostate cancer. Even the results of a biopsy may not tell you if your cancer needs to be treated. Slow-growing prostate cancer may not need any treatment other than monitoring, so diagnosing and treating it may cause unnecessary stress or other side effects. A prostate biopsy may also cause: Infection or fever. A false negative. This is a result that shows that you do not have prostate cancer when you actually do have prostate cancer. Questions to ask your health care provider When should I start prostate cancer screening? What is my risk for prostate cancer? How often do I need screening? What type of screening tests do I need? How do I get my test results? What do my results mean? Do I need treatment? Contact a health care provider if: You have difficulty urinating. You have pain when you urinate or ejaculate. You have blood in your urine or semen. You have pain in your back or in the area of your prostate. You have trouble getting or maintaining an erection (erectile dysfunction, ED). Summary Prostate cancer is a common type of cancer in men. The prostate (prostate gland) is located below the bladder and in front of the rectum. This gland adds fluid to semen during ejaculation. Prostate cancer screening may identify cancer at an early stage, when the cancer can be treated more easily. The prostate-specific antigen (PSA) test is the recommended screening test for prostate cancer. Discuss the risks and benefits of prostate cancer screening with your health care provider. If you are age 70 or older, screening is likely to lead to more risks than benefits (risks outweigh the benefits). This information is not intended to replace advice given to you by your health care provider. Make sure you discuss any questions you have with your health care provider. Document Released: 02/23/2018 Document Revised: 04/27/2018 Document Reviewed: 02/23/2018 [employer] Patient Education 2019 [employer] Follow Up Care 10/07/2021 10:31:59 With:Bang Schulte MD, JASMIN Garrett Address: [facility] [address], [place] [address]- When:Within 1 Year(s) Comments:w/ PSA f/t [facility] Discharge instructions 10-05-2021 Note Date & Type Note Facility 10-05-2021 Hospital Discharg e instructions Patient Education 10/05/2021 10:04:45 Prostate Cancer Screening Prostate Cancer Screening The prostate is a walnut-sized gland that is located below the bladder and in front of the rectum in males. The function of the prostate (prostate gland) is to add fluid to semen during ejaculation. Prostate cancer is the second most common type of cancer in men. A screening test for cancer is a test that is done before cancer symptoms start. Screening can help to identify cancer at an early stage, when the cancer can be treated more easily. The recommended prostate cancer screening test is a blood test called the prostate-specific antigen (PSA) test. PSA is a protein that is made in the prostate. As you age, your prostate naturally produces more PSA. Abnormally high PSA levels may be caused by: Prostate cancer. An enlarged prostate that is not caused by cancer (benign prostatic hyperplasia, BPH). This condition is very common in older men. A prostate gland infection (prostatitis). Medicines to assist with hair growth, such as finasteride. Depending on the PSA results, you may need more tests, such as: A physical exam to check the size of your prostate gland. Blood and imaging tests. A procedure to remove tissue samples from your prostate gland for testing (biopsy). Who should have screening? Screening recommendations vary based on age. If you are younger than age 40, screening is not recommended. If you are age 40 54 and you have no risk factors, screening is not recommended. If you are younger than age 55, ask your health care provider if you need screening if you have one of these risk factors: ?Being of -[place] descent. ?Having a family history of prostate cancer. If you are age 55 69, talk with your health care provider about your need for screening and how often screening should be done. If you are older than age 70, screening is not recommended. This is because the risks that screening can cause are greater than the benefits that it may provide (risks outweigh the benefits). If you are at high risk for prostate cancer, your health care provider may recommend that you have screenings more often or start screening at a younger age. You may be at high risk if you: Are older than age 55. Are -[place]. Have a father, brother, or uncle who has been diagnosed with prostate cancer. The risk may be higher if your family member's cancer occurred at an early age. What are the benefits of screening? There is a small chance that screening may lower your risk of dying from prostate cancer. The chance is small because prostate cancer is typically a slow-growing cancer, and most men with prostate cancer from a different cause. What are the risks of screening? The main risk of prostate cancer screening is diagnosing and treating prostate cancer that would never have caused any symptoms or problems (overdiagnosis and overtreatment). PSA screening cannot tell you if your PSA is high due to cancer or a different cause. A prostate biopsy is the only procedure to diagnose prostate cancer. Even the results of a biopsy may not tell you if your cancer needs to be treated. Slow-growing prostate cancer may not need any treatment other than monitoring, so diagnosing and treating it may cause unnecessary stress or other side effects. A prostate biopsy may also cause: Infection or fever. A false negative. This is a result that shows that you do not have prostate cancer when you actually do have prostate cancer. Questions to ask your health care provider When should I start prostate cancer screening? What is my risk for prostate cancer? How often do I need screening? What type of screening tests do I need? How do I get my test results? What do my results mean? Do I need treatment? Contact a health care provider if: You have difficulty urinating. You have pain when you urinate or ejaculate. You have blood in your urine or semen. You have pain in your back or in the area of your prostate. You have trouble getting or maintaining an erection (erectile dysfunction, ED). Summary Prostate cancer is a common type of cancer in men. The prostate (prostate gland) is located below the bladder and in front of the rectum. This gland adds fluid to semen during ejaculation. Prostate cancer screening may identify cancer at an early stage, when the cancer can be treated more easily. The prostate-specific antigen (PSA) test is the recommended screening test for prostate cancer. Discuss the risks and benefits of prostate cancer screening with your health care provider. If you are age 70 or older, screening is likely to lead to more risks than benefits (risks outweigh the benefits). This information is not intended to replace advice given to you by your health care provider. Make sure you discuss any questions you have with your health care provider. Document Released: 02/23/2018 Document Revised: 04/27/2018 Document Reviewed: 02/23/2018 [employer] Patient Education 2020 [employer] Follow Up Care 09/28/2021 11:22:42 With:Bang Schulte MD, Geovanni Bowen URO Address: [facility] [address] , [place] [address]- When: Unknown Comments:schedule follow up after bx. [facility] Hospital Discharge instructions 09-07-2021 Note Date & Type Note Facility 09-07-2021 Hospital Discharg e instructions Patient Education 09/07/2021 08:42:57 Prostate-Specific Antigen Test Prostate-Specific Antigen Test Why am I having this test? The prostate-specific antigen (PSA) test is a screening test for prostate cancer. It can identify early signs of prostate cancer, which may allow for more effective treatment. Your health care provider may recommend that you have a PSA test starting at age 40 or that you have one earlier or later, depending on your risk factors for prostate cancer. You may also have a PSA test: To monitor treatment of prostate cancer. To check whether prostate cancer has returned after treatment. If you have signs of other conditions that can affect PSA levels, such as: ?An enlarged prostate that is not caused by cancer (benign prostatic hyperplasia, BPH). This condition is very common in older men. ?A prostate infection. What is being tested? This test measures the amount of PSA in your blood. PSA is a protein that is made in the prostate. The prostate naturally produces more PSA as you age, but very high levels may be a sign of a medical condition. What kind of sample is taken? A blood sample is required for this test. It is usually collected by inserting a needle into a blood vessel or by sticking a finger with a small needle. Blood for this test should be drawn before having an exam of the prostate. How do I prepare for this test? Do not ejaculate starting 24 hours before your test, or as long as told by your health care provider. Tell a health care provider about: Any allergies you have. All medicines you are taking, including vitamins, herbs, eye drops, creams, and glao-sst-etlkxtv medicines. This also includes: ?Medicines to assist with hair growth, such as finasteride. ?Any recent exposure to a medicine called diethylstilbestrol. Any blood disorders you have. Any recent procedures you have had, especially any procedures involving the prostate or rectum. Any medical conditions you have. Any recent urinary tract infections (UTIs) you have had. How are the results reported? Your test results will be reported as a value that indicates how much PSA is in your blood. This will be given as nanograms of PSA per milliliter of blood (ng/mL). Your health care provider will compare your results to normal ranges that were established after testing a large group of people (reference ranges). Reference ranges may vary among labs and hospitals. PSA levels vary from person to person and generally increase with age. Because of this variation, there is no single PSA value that is considered normal for everyone. Instead, PSA reference ranges are used to describe whether your PSA levels are considered low or high (elevated). Common reference ranges are: Low: 0 2.5 ng/mL. Slightly to moderately elevated: 2.6 10.0 ng/mL. Moderately elevated: 10.0 19.9 ng/mL. Significantly elevated: 20 ng/mL or greater. Sometimes, the test results may report that a condition is present when it is not present (false-positive result). What do the results mean? A test result that is higher than 4 ng/mL may mean that you are at an increased risk for prostate cancer. However, a PSA test by itself is not enough to diagnose prostate cancer. High PSA levels may also be caused by the natural aging process, prostate infection, or BPH. PSA screening cannot tell you if your PSA is high due to cancer or a different cause. A prostate biopsy is the only way to diagnose prostate cancer. A risk of having the PSA test is diagnosing and treating prostate cancer that would never have caused any symptoms or problems (overdiagnosis and overtreatment). Talk with your health care provider about what your results mean. Questions to ask your health care provider Ask your health care provider, or the department that is doing the test: When will my results be ready? How will I get my results? What are my treatment options? What other tests do I need? What are my next steps? Summary The prostate-specific antigen (PSA) test is a screening test for prostate cancer. Your health care provider may recommend that you have a PSA test starting at age 40 or that you have one earlier or later, depending on your risk factors for prostate cancer. A test result that is higher than 4 ng/mL may mean that you are at an increased risk for prostate cancer. However, elevated levels can be caused by a number of conditions other than prostate cancer. Talk with your health care provider about what your results mean. This information is not intended to replace advice given to you by your health care provider. Make sure you discuss any questions you have with your health care provider. Document Released: 06/17/2005 Document Revised: 04/27/2018 Document Reviewed: 02/19/2018 [employer] Patient Education 2020 [employer] 09/07/2021 08:42:38 Prostate-Specific Antigen Test Prostate-Specific Antigen Test Why am I having this test? The prostate-specific antigen (PSA) test is a screening test for prostate cancer. It can identify early signs of prostate cancer, which may allow for more effective treatment. Your health care provider may recommend that you have a PSA test starting at age 40 or that you have one earlier or later, depending on your risk factors for prostate cancer. You may also have a PSA test: To monitor treatment of prostate cancer. To check whether prostate cancer has returned after treatment. If you have signs of other conditions that can affect PSA levels, such as: ?An enlarged prostate that is not caused by cancer (benign prostatic hyperplasia, BPH). This condition is very common in older men. ?A prostate infection. What is being tested? This test measures the amount of PSA in your blood. PSA is a protein that is made in the prostate. The prostate naturally produces more PSA as you age, but very high levels may be a sign of a medical condition. What kind of sample is taken? A blood sample is required for this test. It is usually collected by inserting a needle into a blood vessel or by sticking a finger with a small needle. Blood for this test should be drawn before having an exam of the prostate. How do I prepare for this test? Do not ejaculate starting 24 hours before your test, or as long as told by your health care provider. Tell a health care provider about: Any allergies you have. All medicines you are taking, including vitamins, herbs, eye drops, creams, and tbuz-hvs-ryknlxx medicines. This also includes: ?Medicines to assist with hair growth, such as finasteride. ?Any recent exposure to a medicine called diethylstilbestrol. Any blood disorders you have. Any recent procedures you have had, especially any procedures involving the prostate or rectum. Any medical conditions you have. Any recent urinary tract infections (UTIs) you have had. How are the results reported? Your test results will be reported as a value that indicates how much PSA is in your blood. This will be given as nanograms of PSA per milliliter of blood (ng/mL). Your health care provider will compare your results to normal ranges that were established after testing a large group of people (reference ranges). Reference ranges may vary among labs and hospitals. PSA levels vary from person to person and generally increase with age. Because of this variation, there is no single PSA value that is considered normal for everyone. Instead, PSA reference ranges are used to describe whether your PSA levels are considered low or high (elevated). Common reference ranges are: Low: 0 2.5 ng/mL. Slightly to moderately elevated: 2.6 10.0 ng/mL. Moderately elevated: 10.0 19.9 ng/mL. Significantly elevated: 20 ng/mL or greater. Sometimes, the test results may report that a condition is present when it is not present (false-positive result). What do the results mean? A test result that is higher than 4 ng/mL may mean that you are at an increased risk for prostate cancer. However, a PSA test by itself is not enough to diagnose prostate cancer. High PSA levels may also be caused by the natural aging process, prostate infection, or BPH. PSA screening cannot tell you if your PSA is high due to cancer or a different cause. A prostate biopsy is the only way to diagnose prostate cancer. A risk of having the PSA test is diagnosing and treating prostate cancer that would never have caused any symptoms or problems (overdiagnosis and overtreatment). Talk with your health care provider about what your results mean. Questions to ask your health care provider Ask your health care provider, or the department that is doing the test: When will my results be ready? How will I get my results? What are my treatment options? What other tests do I need? What are my next steps? Summary The prostate-specific antigen (PSA) test is a screening test for prostate cancer. Your health care provider may recommend that you have a PSA test starting at age 40 or that you have one earlier or later, depending on your risk factors for prostate cancer. A test result that is higher than 4 ng/mL may mean that you are at an increased risk for prostate cancer. However, elevated levels can be caused by a number of conditions other than prostate cancer. Talk with your health care provider about what your results mean. This information is not intended to replace advice given to you by your health care provider. Make sure you discuss any questions you have with your health care provider. Document Released: 06/17/2005 Document Revised: 04/27/2018 Document Reviewed: 02/19/2018 [employer] Patient [employer] Follow Up Care 09/03/2020 09:02:07 With:Bang Schulte MD, Geovanni Bowen, URO Address: [facility] [address] [place] [address]- When:10/05/2021 Comments:to review MRI results [facility] Evaluation + Plan note Note Date & Type Note Facility Evaluation + Plan note No data available for this section [facility] Evaluation + Plan note Note Date & Type Note Facility Evaluation + Plan note Future Appointments Appointment Date:11/15/2022 08:00:00 AM Scheduled Provider:Geovanni Cuenca Jr., MD Location:[facility] Appointment Type:URO Office Visit Diagnostic Tests PendingPSA Free & Total 05/29/22 [facility] Evaluation + Plan note Note Date & Type Note Facility Evaluation + Plan note Future Appointments Appointment Date:12/29/2023 08:30:00 AM Scheduled Provider:Jacoby SERRATO MD Location:[facility] Appointment Type:URO Office Visit Diagnostic Tests PendingPSA Total 12/26/22 [facility] Evaluation note Note Date & Type Note Facility Evaluation note No assessment information availa [facility] Work Phone: Progress note Note Date & Type Note Facility Progress note No data available for this section [facility] Summary Purpose Family History No Family History Records Found Relationship Condition Age at Onset Recorded Date/T cielo father Leukemia Unknown Not Specified Cerebrovascular accident (CVA) Unknown Advance Directives No Advanced Directives Records Found Advance Directive Response Recorded Date/ Time Advance Directives No May 29, 2017 11:04am Chief Complaint and Reason for Visit Chief Complaint elevated psa bph w/u rinary obstruction Additional Source Comments (unrecognized sect ion and content) No Status Records FoundNo Status Records FoundNo Status Records FoundNo Status Records FoundNo Status Records Found INFORMATION SOURCE (unrecogn ized section and content) DATE CREATED AUTHOR 11/17/2017 [facility] DATE CREATED AUTHOR AUTHOR'S ORGANIZ ATION 10/03/2021 [facility] DATE CREATED AUTHOR AUTHOR'S ORGANIZ ATION 07/21/2022 [facility] DATE CREATED AUTHOR AUTHOR'S ORGANIZ ATION 10/07/2023 [facility] EPIC DATE CREATED AUTHOR AUTHOR'S ORGANIZ ATION 12/29/2023 [facility] Care Teams (unrecognized sec tion and content) Team Status: Inactive Member Role Status Dates Benigno Escobar MD Primary Care Provider Active Geovanni Cuenca Jr, MD Attending Provider Active Team Status: Active Member Role Status Dates Benigno Escobar MD Primary Care Provider Active Goals (unrecognized section and content) Goals may be documented in a n alternate section FOR RECORDS PERTAINING TO PATIENTS WHO ARE OR HAVE BEEN ENROLLED IN A CHEMICAL DEPENDENCY/SUBSTANCEABUSE PROGRAM, SOME INFORMATION MAY BE OMITTED. This clinical summary was aggregated from multiple sources. Caution should be exercised in using it in the provision of clinical care. This summary normalizes information from multiple sources, and as a consequence, information in this document may materially change the coding, format and clinical context of patient data. In addition, data may be omitted in some cases. CLINICAL DECISIONS SHOULD BE BASED ON THE PRIMARY CLINICAL RECORDS. [facility]. provides no warranty or guarantee of the accuracy or completeness of information in this document.
[2024-01-05 04:08] LABS: PSA, Free 0.82 ng/mL; Prostate Specific Ag 4.2 ng/mL (0.0-4.0)
== END 2024-01-04 10:07 | disposition home or self-care (01) ==
LOC: LAB 10:09
PROVIDERS: PCP Family Medicine; Visit Provider Urology
DX: R97.20 Elevated prostate specific antigen [PSA] (principal)
CPT/HCPCS: 36415; 84153; 84154

== ENCOUNTER 2024-09-27 10:20 | Outpatient (OUT) | payer MEDICARE, SELFPAY ==
[2024-09-27 10:38] LABS: Basophils Percent Auto 0.7 % (0.2-2.0); Eosinophils Absolute Auto 0.2 10^3/uL (0.0-0.7); Eosinophils Percent Auto 3.3 % (0.9-7.0); Hematocrit 38.4 % (42.0-54.0); Hemoglobin 12.8 g/dL (14.0-18.0); Immature Granulocytes Abs Auto 0.02 10^3/uL (0.00-0.03); Immature Granulocytes Pct Auto 0.3 % (0.0-0.5); Lymphocytes Absolute Auto 1.4 10^3/uL (1.2-3.8); Lymphocytes Percent Auto 23.6 % (20.5-60.0); Mean Corpuscular HGB Conc 33.3 g/dL (29.9-35.2); Mean Corpuscular Hemoglobin 29.8 pg (25.9-34.0); Mean Corpuscular Volume 89.5 fL (80.0-94.0); Mean Platelet Volume 10.5 fL (9.5-13.5); Monocytes Absolute Auto 0.7 10^3/uL (0.3-0.8); Monocytes Percent Auto 11.4 % (1.7-12.0); Neutrophils Absolute Auto 3.5 10^3/uL (1.4-6.5); Neutrophils Percent Auto 60.7 % (43.0-75.0); Platelet Count 227 10^3/uL (150-450); Red Blood Count 4.29 10^6/uL (4.70-6.10); Red Cell Distribution Width 13.2 % (11.0-15.0); White Blood Count 5.8 10^3/uL (4.0-11.0)
[2024-09-27 11:10] LABS: Estimated Average Glucose 114 mg/dL; Glycohemoglobin A1C 5.6 % (4.5-6.2)
[2024-09-27 12:48] LABS: Alanine Aminotransferase 27 U/L (16-63); Albumin Globulin Ratio 1.2; Albumin Level 3.8 g/dL (3.4-5.0); Alkaline Phosphatase 75 U/L (46-116); Anion Gap 14.9; Aspartate Amino Transferase 17 U/L (15-37); BUN Creatinine Ratio 17.6; Bilirubin Total 0.7 mg/dL (0.2-1.0); Calcium 9.1 mg/dL (8.5-10.1); Carbon Dioxide 26.2 mmol/L (21.0-32.0); Chloride 104 mmol/L (98-107); Chol HDL Ratio 4.1; Cholesterol 221 mg/dL (<=200); Estimated GFR (African America >60 (>=60 mL/min/1.73m^2); Estimated GFR (Non-African Ame 56 (>=60 mL/min/1.73m^2); Globulin 3.3 g/dL; Glucose 104 mg/dL (74-106); HDL Cholesterol 54 mg/dL (40-60); Potassium 4.1 mmol/L (3.5-5.1); Sodium 141 mmol/L (136-145); Thyroid Stimulating Hormone 1.412 uIU/mL (0.358-3.740); Total Protein 7.1 g/dL (6.4-8.2); Triglycerides 60 mg/dL (<=150)
== END 2024-09-27 10:21 | disposition home or self-care (01) ==
LOC: LAB 10:22
PROVIDERS: PCP Family Medicine; Visit Provider Family Medicine
DX: E78.00 Pure hypercholesterolemia, unspecified (principal); I10 Essential (primary) hypertension; N40.1 Benign prostatic hyperplasia with lower urinary tract symptoms; R73.09 Other abnormal glucose; Z12.12 Encounter for screening for malignant neoplasm of rectum
CPT/HCPCS: 36415; 80053; 80061; 83036; 84436; 84443; 84481; 85025

== ENCOUNTER 2025-01-15 10:17 | Outpatient (OUT) | payer MEDICARE, SELFPAY ==
--- OUTSIDE RECORDS SUMMARY | 2025-01-15 10:22 | XMS_ITS | CCD ---
Author Organization [facility]ini[facility] Care Team Providers Care Nurse Practitioner Name Role Phone PHYSICIAN, DEFAULT Unavailable Unavailable PHYSICIAN, DEFAULT Unavailable Unavailable SKIE, ROHIT Unavailable Unavailable SKIE, ROHIT Unavailable Unavailable HOY, BENIGNO Unavailable Unavailable HOY, BENIGNO Unavailable Unavailable NC Unavailable Unavailable SKIE, ROHIT Unavailable Unavailable NC Unavailable Unavailable DELMA, CIELO Unavailable Unavailable Benigno Escobar Primary Care Physician MD Benigno Escobar Primary Care Provider MD Geovanni Cuenca Jr Attending Provider ZEN ., DR PELAEZ Admitting Unavailable HOY [...] CHAIREZ Consulting Unavailable BANG CAROLINA ., DR GEOVANNI Bowen Admitting Unavaila ble BANG Singh, DR GEOVANNI Bowen Attending Unavaila ble ZEN ., DR PELAEZ Primary Care Unavailable CUENCA ., DR GEOVANNI Bowen Consulting Unavaila ble CUENCA ., DR GEOVANNI Bowen Admitting Unavaila ble CUENCA ., DR GEOVANNI Bowen Attending Unavaila ble ZEN ., DR PELAEZ Primary Care Unavailable BANG CAROLINA ., DR GEOVANNI Bowen Consulting Unavaila ble CUENCA ., DR GEOVANNI Bowen Admitting Unavaila ble CUENCA ., DR GEOVANNI Bowen Attending Unavaila ble HOTaylor ., DR PELAEZ Primary Care Unavailable CUENCA JR ., DR GEOVANNI Bowen Admitting Unavailnabil Singh, DR GEOVANNI Bowen Attending Unavailnabil ESCOBAR ., DR PELAEZ Primary Care Unavailable BANG Singh, DR GEOVANNI Bowen Consulting Unavaila zach AGUBOSIGABI Ivory Consulting Unavailable ANILA POP Consulting Unavailable SAY CHAVES Attending Unavailab le Unavailable Primary Care Provider UnavailJOANIE Le Attending Unavailable Allergies Allergy Classification Reported Allergen(s) Allergy Type Date of Onset Reaction(s) Facility (1 source) 46501,00; Translations: [35956,00] Propensity to adverse reactions (disorder) [facility] Repository (1 source) No Known Medication Allergies; Translations: [No Known Medication Allergies] Propensity to adverse reactions (disorder) [facility] Repository Medications Current Medications Medication Drug [...] 2019 8:05am lisinopril 10 mg oral tablet (6 sources) Angiotensin Converting Enzyme Inhibitor Start: 03-12-2019 take 1 mg by mouth once daily lisinopril 10 mg Tab mg tab(s), Oral, Daily Start Date: 03/12/19 Status: Ordered mirtazapine 30 mg oral tablet (6 sources) Start: 03-12-2019 take 1 mg by mouth once daily at bedtime mirtazapine 30 mg Tab mg tab(s), Oral, Once a day (at bedtime) Start Date: 03/12/19 Status: Ordered pantoprazole 40 mg delayed release oral tablet (6 sources) Proton Pump Inhibitor Start: 03-12-2019 take [...] PO Twice daily June 24, 2019 6:05pm Completed/Discontinued Medications Medication Drug Class(es) Dates Sig (Normalized) Sig (Original) 1 ml secukinumab 150 mg/ml auto-injector (3 sources) Interleukin-17A Antagonist Start: 06-08-2023 End: 10-07-2024 inject 28 mg by subcutaneous injection once daily Cosentyx Sensoready, 300 MG, 150 MG/ML solution auto-injector Indications: Psoriasis vulgaris (CMS/HCC) Inject 300 mg under the skin every 28 (twenty-eight) days 2 each 06/08/2023 10/07/2024 Discontinued Problems Active Problems Problem Classification Problem Date Documented Date Episodic/Chronic Chronic obstructive pulmonary disease and bronchiectasis (5 sources) Bronchitis 05-09-2019 Episodic Diabetes mellitus without complication (1 source) Other abnormal glucose; Translations: [OTHER ABNORMAL GLUCOSE] Onset: 07-20-2022 Episodic Disorders of lipid metabolism (7 sources) Hyperlipidemia; Translations: [Pure hypercholesterolemia, unspecified] Onset: 07-20-2022 05-09-2019 Chronic Esophageal disorders (6 sources) Gastroesophageal reflux disease; Translations: [Gastro-esophageal reflux disease without esophagitis] Onset: 10-27-2021 05-09-2019 Chronic Essential hypertension (7 sources) Essential (primary) hypertension; Translations: [Hypertensive disorder] Onset: 07-17-2017 05-09-2019 Chronic Gastritis and duodenitis (5 sources) Gastritis 05-09-2019 Episodic Genitourinary symptoms and ill-defined conditions (18 sources) Dysuria; Translations: [Mihir hematuria] Onset: 10-27-2021 07-12-2019 Episodic Hyperplasia of prostate (12 sources) Benign prostatic hyperplasia without lower urinary tract symptoms; Translations: [Benign prostatic hypertrophy with outflow obstruction] Onset: 07-17-2017 Chronic Mycoses (5 sources) Tinea corporis 05-09-2019 Episodic Other aftercare (1 source) Other terminal worker (current) drug therapy; Translations: [OTH HISTOLOGY MANAGER CURRENT DRUG THERAPY] Onset: 07-20-2022 Episodic Other connective tissue disease (5 sources) Dupuytren's contracture 05-09-2019 Episodic Other connective tissue disease (5 sources) Pain in buttock 02-25-2021 Episodic Other inflammatory condition of skin (5 sources) Psoriasis 05-09-2019 Chronic Other inflammatory condition of skin (4 sources) Psoriasis vulgaris; Translations: [PSORIASIS VULGARIS] Onset: 07-19-2022 Chronic Other inflammatory condition of skin (2 sources) Psoriasis vulgaris; Translations: [Psoriasis vulgaris] 10-08-2024 Chronic Other lower respiratory disease (5 sources) Hemoptysis 05-09-2019 Episodic Other lower respiratory disease (1 source) Other forms of dyspnea; Translations: [OTHER FORMS OF DYSPNEA] Onset: 07-20-2022 Episodic Other male genital disorders (3 sources) Cyst of testis; Translations: [Benign cyst of testis] Onset: 12-26-2022 Episodic Other screening for suspected conditions (not mental disorders or infectious disease) (17 sources) Raised prostate specific antigen; Translations: [Elevated prostate specific antigen [PSA]] Onset: 09-04-2021 Episodic Other upper respiratory infections (5 sources) Sinusitis 05-09-2019 Chronic Otitis media and related conditions (5 sources) Otitis media 05-09-2019 Episodic Residual codes; [...] unspecified; Translations: [DISORDER OF PROSTATE UNSPECIFIED] Onset: 05-25-2022 Episodic Other male genital disorders (1 source) Other specified disorders of prostate; Translations: [OTHER SPECIFIED DISORDERS PROSTATE] Onset: 10-27-2021 Episodic Unclassified (2 sources) Unknown / UNK(Unknown) Onset: 07-17-2017 Results Test Name Value Interpretation Reference Range Facility Ambulatory Visit Summaryon 0 01-11-2024 Ambulatory Visit Summary Ambulatory Visit Summary JUN WALLS :1950 Visit Date:01/11/2024 Ambulatory Visit Instructions Your Diagnosis Elevated PSA BPH with urinary obstruction Your Care Team Attending Physician - BARBARA CHAVES PA-C Primary Care Physician - Benigno Escobar MD This Is Your Medications List Contact prescribing physician if questions or concerns lisinopril (lisinopril 10 mg Tab) mirtazapine (mirtazapine 30 mg Tab) pantoprazole (Pantoprazole [address] Tab) Procedures Performed MRI-US fusion guided transperineal biopsy of prostate (10/20/2021), Transurethral resection of prostate (07/03/2019), Cystoscopy (07/19/2018), Transrectal biopsy of prostate using ultrasound (US) guidance (10/04/2013), Esophagogastroduodenoscopy and biopsy, Procedure on hand. Discharge Vitals Temperature (Temporal Artery) 37 ?C Heart Rate (Peripheral) 54 Respiratory Rate 16 Blood Pressure 120/73 Height 175 cm Height 69 in Weight 78.5 kg Weight 172.7 lb BMI 25.63 What to do next You Need to Schedule the Following Appointments Follow Up with BARBARA CHAVES PA-C, MARY When: Comments: PSA in 1 year Where: [address] [place] [address] Medications What How Much When Instructions Unchanged lisinopril (lisinopril 10 mg Tab) Every day Contact prescribing physician if questions or concerns Unchanged mirtazapine (mirtazapine 30 mg Tab) Once a day (at bedtime) Contact prescribing physician if questions or concerns Unchanged pantoprazole (Pantoprazole [address] Tab) Every day Contact prescribing physician if questions or concerns Allergies No Known Medication Allergies Problems Ongoing - Any problem that you are currently receiving treatment for. BPH with urinary obstruction Bronchitis Dupuytren's contracture- left ring finger Dysuria Elevated PSA Gastritis Gastroesophageal reflux Gluteal pain Gross hematuria Hemoptysis Hyperlipidemia Hypertension Otitis media Psoriasis Sinusitis Testicular cyst Tinea corporis Urinary retention Patient Survey You may receive a survey via text or e-mail asking about your office visit. Please share your experience with us by completing your survey. We appreciate your feedback and thank you for choosing us for your care. Education Materials Prostate Cancer Screening Prostate cancer screening is [...] recommendations. In general, screening is recommended if: ? You are age 50 to 70 and [...] have a 10- to 15-year life expectancy. ? You are younger than age 50, and you have these risk factors: ? Having a father, brother, or uncle who has been diagnosed with prostate cancer. The risk is higher if your family member's cancer occurred at an early age or if you have multiple family members with prostate cancer at an early age. ? Being a male who is Black or is of [place] or sub-Saharan descent. In general, screening is not recommended if: ? You are younger than age 40. ? You are between the ages of 40 and 49 and you have no risk factors. ? You are 70 years of age or [...] high PSA levels may be caused by: ? Prostate cancer. ? An enlarged prostate that is not caused by cancer (benign prostatic hyperplasia, or BPH). This condition is very common in older men. ? A prostate gland infection (prostatitis) or urinary tract infection. ? Certain medicines such as male hormones (like testosterone) or other medicines that raise testosterone levels. A rectal exam may be done as part of prostate cancer screening to help provide inform (more content not included)... Normal [facility] Urology Office/Clinic Noteon 01-11-2024 Urology Office/Clinic Note Urology Office/Clinic Note Chief Complaint elevated PSA and BPH HPI Staff 1yr PSA DX: Elevated PSA, BPH & Testicular Cyst *No Urology Meds PSA 09/04/21 - 5.99 07/19/22 - 5.81 (4.9 and 17.1%, drawn the same day) 12/21/22 - 4.8 and 17.3% 01/04/24 - 4.2 & 19.5 Dysuria: no Incomplete bladder emptying: no Hematuria: no Frequency: no Urgency: no Nocturia: no Stream: good steady stream Leaking: no Post void dripping: yes Wearing pads/ Depends: no Urge incontinence: no Stress incontinence: no Incontinence without Sensory Awareness: no Abdominal pain: no Flank pain: no Sexual complaints: no History of Present Illness Tests reviewed: reviewed UA and PSAs I have reviewed the previous health record information and history for this patient from Dr. Zheng. I have reviewed and verified the staff HPI to be accurate for this encounter. Review of Systems PHQ Score Initial Depression Screen Score: 0 SCORE no fever, chills, malaise, myalgia. no rash/lesions. no chest pain, palpitations, or SOB. no abdominal pain, nausea, vomiting. no unilateral calf swelling, redness, pain Physical Exam Vitals & Measurements T: 37 ?C(Temporal Artery) HR: 54(Peripheral) RR: 16 BP: 120/73 HT: 69 in HT: 175 cm WT: 78.5 kg WT: 172.7 lb BMI: 25.63 General: nontoxic, NAD Mouth: moist mucosa Lungs: normal respiratory effort Cardio: regular rate, good distal perfusion Abdomen: nondistended, no suprapubic distention or tenderness, no CVA tenderness Neurologic: Grossly normal Skin: No rashes or suspicious lesions Assessment/Plan IPSS 5. HILDA 22. UA completed in office today shows no microhematuria or signs of infection. former DLS pt 1. Elevated PSA (R97.20: Elevated prostate specific antigen [PSA]) TRUS/bx 10/04/13 neg fusion bx 10/20/21 neg S/p TURP 07/03/19 PSA 09/04/21 - 5.99 07/19/22 - 5.81 (4.9 and 17.1%, drawn the same day) 12/21/22 - 4.8 and 17.3% 01/04/24 - 4.2 & 19.5% PSA remains slightly elevated but has been much higher previously. Reviewed PSA history with pt. I discussed the options concerning the PSA and continued monitoring, given his advancing age. We agree to continue monitoring his PSA levels for now. -PSA in 1 year 2. BPH with urinary obstruction (N40.1: Benign prostatic hyperplasia with lower urinary tract symptoms) Pt is not currently taking any BPH medications. UA today is negative for blood and infections. States he has some post-void dribbling is his only concern. IPSS 5 QOL 1 Does not wish to try any meds or tx for this at this time. Follow-up With When Contact Information BARBARA CHAVES PA-C, URL [address] [facility] [place] [address] Additional Instructions: PSA in 1 year Patient Education Prostate Cancer Screening Documentation recorded by the nicole Cowart accurately reflects the services(s) I performed and decisions made by me. Authenticated by Barbara Chaves PA-C on 01/11/2024 10:30:17. Jovan Crump, personally scribed for Barbara Chaves PA-C on 01/11/2024 10:21:36. . Problem List/Past Medical History Ongoing BPH with urinary obstruction Bronchitis Dupuytren's contracture- left ring finger Dysuria Elevated PSA Gastritis Gastroesophageal reflux Gluteal pain Gross hematuria Hemoptysis Hyperlipidemia Hypertension Otitis media Psoriasis Sinusitis Testicular cyst Tinea corporis Urinary retention Historical No qualifying data Procedure/Surgical History MRI-US fusion guided transperineal biopsy of prostate (10/20/2021), Transurethral resection of prostate (07/03/2019), Cystoscopy (07/19/2018), Transrectal biopsy of prostate using ultrasound (US) guidance (10/04/2013), Esophagogastroduodenoscopy and biopsy, Procedure on hand. Medications lisinopril 10 mg Tab, Oral, Daily mirtazapine 30 mg Tab, Oral, Once a day (at bedtime) Pantoprazole [address] Tab, Oral, Daily Allergies No Known Medication Allergies Social History Alcohol - Denies Alcohol Use, 08/12/2019 Substance Abuse - Denies Substance Abuse, 08/12/2019 Tobacco - Denies Tobacco Use, 08/12/2019 Never (less than 100 in lifetime) Tobacco Use:. Never Smokeless Tobacco Use:. Household tobacco concerns: No., 01/11/2024 Family History Leukemia: Father. Stroke: Mother. Immunizations Vaccine Date Status Comments SARSCoV2 mRNA(ohgffxuat-aiwv-ujphbd) vac 10/07/2021 Recorded 2022-12-26: TPV70 SARSCoV2 mRNA(crltvqomh-vebp-fmcrnl) vac 09/16/2021 Recorded 2022-12-26: TPV70 SARS-CoV-2 (COVID-19) Ad26 vaccine - Not Given Patient Refuses Lab Results Ambulatory Point of Care Results Bilirubin Urine Dipstick: 1+ Small (01/11/24 10:01:00) Blood Urine Dipstick: Negative (01/11/24 10:01:00) Glucose Urine Dipstick: Negative (01/11/24 10:01:00) Ketones Urine Dipstick: Negative (01/11/24 10:01:00) Leukocytes Urine Dipstick: Negative (01/11/24 10 (more content not included)... Normal [facility] Comment on above: Result Comment: Elec tronically Signed By: BARBARA CHAVES PA-C\.br\Date and Time Signed: 01/11/24 10:30 EDT\.br\Electronically Co-Signed By: Jovan Cowart\.br\Date and Time Co-Signed: 01/11/24 10:21 EDT PSA, FREE AND TOTAL RATIOon 07-21-2022 % Free PSA 17.1 % Normal [facility] Comment on above: Result Comment: The table [...] men. Performed By: #### P SAD #### [facility] [address] [address] [address] Hemalatha Tran Prostate specific Ag [Mass/Vol] 4.9 ng/mL Critically high 0.0-4.0 [facility] Comment on above: Result Comment: Ruby BELLAMYIA methodology. . According to the [place] [employer], Serum PSA should decrease and [...] disease. Performed By: #### P SAD #### [facility] [address] [address] [address] Hemalatha Tran PSA, Free 0.84 ng/mL Normal N/A [facility] Comment on above: Result Comment: Ruby e ECLIA methodology. Performed By: #### P SAD #### [facility] [address] [address] [address] Hemalatha Tran QUANTIFERON TB GOLD PLUSon 0 07-21-2022 QuantiFERON Criteria Comment Normal [facility] Comment on above: Result Comment: Elpidio tiFERON-TB [...] test. Performed By: #### Q NTTB #### [facility] [address] [place] [address] Dr. Hemalatha Tran QuantiFERON Incubation Incubation performed. Normal [facility] Comment on above: Performed By: #### Q NTTB #### [facility] [address] [place] [address] Dr. Hemalatha Tran QuantiFERON Mitogen Value 3.25 IU/mL Normal [facility] Comment on above: Performed By: #### Q NTTB #### [facility] [address] [place] [address] Dr. Hemalatha rTan QuantiFERON Nil Value 0.00 IU/mL Normal [facility] Comment on above: Performed By: #### Q NTTB #### [facility] [address] [place] [address] Dr. Hemalatha Tran QuantiFERON TB1 Ag Value 0.00 IU/mL Normal [facility] Comment on above: Performed By: #### Q NTTB #### [facility] [address] [place] [address] Dr. Hemalatha Tran QuantiFERON TB2 Ag Value 0.00 IU/mL Normal [facility] Comment on above: Performed By: #### Q NTTB #### [facility] [address] [place] [address] Dr. Hemalatha Tran QuantiFERON-TB Gold Plus Negative Normal Negative [facility] Comment on above: Result Comment: No r esponse to M tuberculosis antigens detected. Infection with M tuberculosis is unlikely, but high risk individuals should be considered for additional testing (ATS/IDSA/CDC Clinical Practice Guidelines, 2017). The reference range is an Antigen minus Nil result of <0.35 IU/mL. Chemiluminescence immunoassay methodology Performed By: #### Q NTTB #### [facility] [address] [place] [address] Dr. Hemalatha Tran INSULINon 07-20-2022 Insulin 11.9 uIU/mL Normal 2.6-24.9 [facility] Comment on above: Performed By: #### P SAD #### [facility] [address] [place] [address] Dr. Hemalatha Tran CBC AUTO DIFFon 07-19-2022 BASO # 0.1 103/ul Normal 0.0-0.1 [facility] Comment on above: Performed By: #### C BC #### [facility] [address] [place] [address] Dr. Hemalatha Tran Basophils/100 WBC (Bld) 0.8 % Normal 0.2-2.0 [facility] Comment on above: Performed By: #### C BC #### [facility] [address] [place] [address] Dr. Hemalatha Tran EO # 0.1 103/ul Normal 0.0-0.7 [facility] Comment on above: Performed By: #### C BC #### [facility] [address] [place] [address] Dr. Hemalatha Tran Eosinophils/100 WBC (Bld) 1.2 % Normal 0.9-7.0 [facility] Comment on above: Performed By: #### C BC #### [facility] [address] [place] [address] Dr. Hemalatha Tran Erythrocyte distribution width (RBC) [Ratio] 13.1 % Normal 11.0-15.0 [facility] Comment on above: Performed By: #### C BC #### [facility] [address] [place] [address] Dr. Hemalatha Tran Hematocrit (Bld) [Volume fraction] 39.5 % Critically low 42.0-54.0 [facility] Comment on above: Performed By: #### C BC #### [facility] [address] [place] [address] Dr. Hemalatha Tran Hemoglobin (Bld) [Mass/Vol] 13.5 g/dL Critically low 14.0-18.0 [facility] Comment on above: Performed By: #### C BC #### [facility] [address] [place] [address] Dr. Hemalatha Tran IG # 0.02 10e3/ul Normal 0.00-0.03 [facility] Comment on above: Performed By: #### C BC #### [facility] [address] [place] [address] Dr. Hemalatha Tran IG % 0.3 % Normal 0.0-0.5 [facility] Comment on above: Performed By: #### C BC #### [facility] [address] [place] [address] Dr. Hemalatha Tran LYMPH # 0.9 103/ul Critically low 1.2-3.8 [facility] Comment on above: Performed By: #### C BC #### [facility] [address] [place] [address] Dr. Hemalatha Tran Lymphocytes/100 WBC (Bld) 14.0 % Critically low 20.5-60.0 [facility] Comment on above: Performed By: #### C BC #### [facility] [address] [place] [address] Dr. Hemaltaha Tran MANUAL DIFF REQ NO Normal [facility] Comment on above: Performed By: #### C BC #### [facility] [address] [place] [address] Dr. Hemalatha Tran MCH (RBC) [Entitic mass] 29.5 pg Normal 25.9-34.0 [facility] Comment on above: Performed By: #### C BC #### [facility] [address] [place] [address] Dr. Hemalatha Tran MCHC (RBC) [Mass/Vol] 34.2 g/dL Normal 29.9-35.2 [facility] Comment on above: Performed By: #### C BC #### [facility] [address] [place] [address] Dr. Hemalatha Tran MCV (RBC) [Entitic vol] 86.4 fL Normal 80.0-94.0 [facility] Comment on above: Performed By: #### C BC #### [facility] [address] [place] [address] Dr. Hemalatha Tran MONO # 0.6 103/ul Normal 0.3-0.8 [facility] Comment on above: Performed By: #### C BC #### [facility] [address] [address] [address] Hemalatha Tran Monocytes/100 WBC (Bld) 8.6 % Normal 1.7-12.0 [facility] Comment on above: Performed By: #### C BC #### [facility] [address] [place] [address] Dr. Hemalatha Tran NEUT # 4.8 103/ul Normal 1.4-6.5 [facility] Comment on above: Performed By: #### C BC #### [facility] [address] [place] [address] Dr. Hemalatha Tran Neutrophils/100 WBC (Bld) 75.1 % Critically high 43.0-75.0 [facility] Comment on above: Performed By: #### C BC #### [facility] [address] [place] [address] Dr. Hemalatha Tran Platelet mean volume (Bld) [Entitic vol] 9.9 fL Normal 9.5-13.5 [facility] Comment on above: Performed By: #### C BC #### [facility] [address] [place] [address] Dr. Hemalatha Tran PLT 239 103/ul Normal 150-450 [facility] Comment on above: Performed By: #### C BC #### [facility] [address] [place] [address] Dr. Hemalatha Tran RBC 4.57 106/ul Critically low 4.70-6.10 [facility] Comment on above: Performed By: #### C BC #### [facility] [address] [place] [address] Dr. Hemalatha Tran WBC 6.4 103/ul Normal 4.0-11.0 [facility] Comment on above: Performed By: #### C BC #### [facility] [address] [place] [address] Dr. Hemalatha Tran FREE THYROXINE INDEX T7on FTI 2.35 Normal 1.30-4.50 [facility] Comment on above: Performed By: #### T SH, URIC, LIPID, CMP, T7 #### [facility] [address] [place] [address] Dr. Hemalatha Tran T3U 34.0 % Normal 33.0-40.0 [facility] Comment on above: Performed By: #### T SH, URIC, LIPID, CMP, T7 #### [facility] [address] [address] [address] Hemalatha Tran T4 [Mass/Vol] 6.90 ug/dL Normal 4.50-12.[address] [facility] Comment on above: Performed By: #### T SH, URIC, LIPID, CMP, T7 #### [facility] [address] [address] [address] Hemalatha Tran GLYCOHEMOGLOBIN A1Con 2022 ADA RECOMMENDATION SEE BELOW Normal [facility] Comment on above: Result Comment: ADA RECOMMENDED LIMIT 4.0 - 6.0 ADA THERAPEUTIC TARGET < 7.0 ACTION SUGGESTED > 7.0 Performed By: #### P SAD #### [facility] [address] [place] [address] Dr. Hemalatha Tran Glucose [Mass/Vol] 111 mg/dL Normal [facility] Comment on above: Performed By: #### P SAD #### [facility] [address] [place] [address] Dr. Hemalatha Tran HbA1c (Bld) [Mass fraction] 5.5 % Normal 4.5-6.2 [facility] Comment on above: Performed By: #### P SAD #### [facility] [address] [place] [address] Dr. Hemalatha Tran LIPID PROFILEon 07-19-2022 CHOL-HDL RATIO NORM SEE BELOW Normal [facility] Comment on above: Result Comment: 3.3 - 4.4 LOW RISK 4.4 - 7.1 AVERAGE RISK 7.1 - 11.0 MODERATE RISK >11.0 HIGH RISK Performed By: #### T SH, URIC, LIPID, CMP, T7 #### [facility] [address] [place] [address] Dr. Hemalatha Tran Cholesterol [Mass/Vol] 250 mg/dL Critically high <=200 [facility] Comment on above: Performed By: #### T SH, URIC, LIPID, CMP, T7 #### [facility] [address] [place], [place] [address] Dr. Hemalatha Tran Cholesterol in HDL [Mass/Vol] 56 mg/dL Normal 40-60 [facility] Comment on above: Performed By: #### T SH, URIC, LIPID, CMP, T7 #### [facility] [address] [place] [address] [address] Hemalatha Tran Cholesterol in LDL [Mass/Vol] 182.0 mg/dL Normal [facility] Comment on above: Performed By: #### T SH, URIC, LIPID, CMP, T7 #### [facility] [address] [place] [address] [address] Hemalatha Tran Cholesterol.total/ Cholesterol in HDL [Mass ratio] 4.5 {ratio} Normal [facility] Comment on above: Performed By: #### T SH, URIC, LIPID, CMP, T7 #### [facility] [address] [place] [address] [address] Hemalatha Tran HDL NORMAL > or = 60 mg/dl - LO W CARDIOVASCULAR RISK <40 mg/dl - HIGH CARDIOVASCULAR RISK Normal [facility] Comment on above: Performed By: #### T SH, URIC, LIPID, CMP, T7 #### [facility] [address] [place] [address] [address] Hemalatha Tran LDL CALC NORMAL SEE BELOW Normal [facility] Comment on above: Result Comment: <100 mg/dl OPTIMAL 100 - 129 mg/dl NEAR OR ABOVE OPTIMAL 130 - 159 mg/dl BORDERLINE HIGH 160 - 189 mg/dl HIGH >190 mg/dl VERY HIGH Performed By: #### T SH, URIC, LIPID, CMP, T7 #### [facility] [address] [place] [address] [address] Hemalatha Tran Triglyceride [Mass/Vol] 60 mg/dL Normal <=150 [facility] Comment on above: Performed By: #### T SH, URIC, LIPID, CMP, T7 #### [facility] [address] [address] [address] Hemalatha Tran VLDL CALC 12.0 mg/dL Normal [facility] Comment on above: Performed By: #### T SH, URIC, LIPID, CMP, T7 #### [facility] [address] [place] [address] Dr. Hemalatha Tran PROF 14(COMP METB)on 023 Albumin [Mass/Vol] 4.0 g/dL Normal 3.4-5.0 [facility] Comment on above: Performed By: #### T SH, URIC, LIPID, CMP, T7 #### [facility] [address] [place] [address] Dr. Hemalatha Tran Albumin/Globulin [Mass ratio] 1.1 {ratio} Normal [facility] Comment on above: Performed By: #### T SH, URIC, LIPID, CMP, T7 #### [facility] [address] [place] [address] Dr. Hemalatha Tran ALP [Catalytic activity/Vol] 80 U/L Normal 46-116 [facility] Comment on above: Performed By: #### T SH, URIC, LIPID, CMP, T7 #### [facility] [address] [place] [address] Dr. Hemalatha Tran ALT [Catalytic activity/Vol] 36 U/L Normal 16-63 [facility] Comment on above: Performed By: #### T SH, URIC, LIPID, CMP, T7 #### [facility] [address] [place] [address] Dr. Hemalatha Tran Anion gap [Moles/Vol] 10.1 mmol/L Normal [facility] Comment on above: Performed By: #### T SH, URIC, LIPID, CMP, T7 #### [facility] [address] [place] [address] Dr. Hemalatha Tran AST [Catalytic activity/Vol] 22 U/L Normal 15-37 [facility] Comment on above: Performed By: #### T SH, URIC, LIPID, CMP, T7 #### [facility] [address] [place] [address] Dr. Hemalatha Tran Bilirubin [Mass/Vol] 0.6 mg/dL Normal 0.2-1.0 [facility] Comment on above: Performed By: #### T SH, URIC, LIPID, CMP, T7 #### [facility] [address] [address] [address] Hemalatha Tran Calcium [Mass/Vol] 9.2 mg/dL Normal 8.5-10.1 [facility] Comment on above: Performed By: #### T SH, URIC, LIPID, CMP, T7 #### [facility] [address] [address] [address] Hemalatha Tran Chloride [Moles/Vol] 103 mmol/L Normal 98-107 [facility] Comment on above: Performed By: #### T SH, URIC, LIPID, CMP, T7 #### [facility] [address] [place] [address] Dr. Hemalatha Tran CO2 [Moles/Vol] 29.2 mmol/L Normal 21.0-32.0 [facility] Comment on above: Performed By: #### T SH, URIC, LIPID, CMP, T7 #### [facility] [address] [place] [address] Dr. Hemalatha Tran Creatinine [Mass/Vol] 1.24 mg/dL Normal 0.70-1.30 [facility] Comment on above: Performed By: #### T SH, URIC, LIPID, CMP, T7 #### [facility] [address] [place] [address] Dr. Hemalatha Tran EGFR-AF EGYPTIAN >60 Normal >=60 [facility] Comment on above: Performed By: #### T SH, URIC, LIPID, CMP, T7 #### [facility] [address] [place] [address] Dr. Hemalatha Tran EGFR-NON AF EGYPTIAN 57 mL/min/1.73m2 Critically low >=60 [facility] Comment on above: Performed By: #### T SH, URIC, LIPID, CMP, T7 #### [facility] [address] [place] [address] Dr. Hemalatha Tran Globulin (S) [Mass/Vol] 3.6 g/dL Normal [facility] Comment on above: Performed By: #### T SH, URIC, LIPID, CMP, T7 #### [facility] [address] [place] [address] Dr. Hemalatha Tran Glucose [Mass/Vol] 107 mg/dL Critically high 74-106 [facility] Comment on above: Performed By: #### T SH, URIC, LIPID, CMP, T7 #### [facility] [address] [place] [address] [address] Hemalatha Tran Potassium [Moles/Vol] 4.3 mmol/L Normal 3.5-5.1 [facility] Comment on above: Performed By: #### T SH, URIC, LIPID, CMP, T7 #### [facility] [address] [place] [address] Dr. Hemalatha Tran Protein [Mass/Vol] 7.6 g/dL Normal 6.4-8.2 [facility] Comment on above: Performed By: #### T SH, URIC, LIPID, CMP, T7 #### [facility] [address] [place] [address] Dr. Hemalatha Tran Sodium [Moles/Vol] 138 mmol/L Normal 136-145 [facility] Comment on above: Performed By: #### T SH, URIC, LIPID, CMP, T7 #### [facility] [address] [place] [address] [address] Hemalatha Tran Urea nitrogen [Mass/Vol] 17.0 mg/dL Normal 7.0-18.0 [facility] Comment on above: Performed By: #### T SH, URIC, LIPID, CMP, T7 #### [facility] [address] [place] [address] Dr. Hemalatha Tran Urea nitrogen/Creatinin e [Mass ratio] 13.7 mg/mg Normal [facility] Comment on above: Performed By: #### T SH, URIC, LIPID, CMP, T7 #### [facility] [address] [place] [address] Dr. Hemalatha Tran TSHon 07-19-2022 TSH 1.489 uIU/mL Normal 0.358-3.740 [facility] Comment on above: Performed By: #### T SH, URIC, LIPID, CMP, T7 #### [facility] [address] [place] [address] Dr. Hemalatha Tran URIC ACID SERUMon 07-19-2022 Urate [Mass/Vol] 6.6 mg/dL Normal 3.5-7.2 [facility] Comment on above: Performed By: #### T SH, URIC, LIPID, CMP, T7 #### [facility] [address] [place] [address] Dr. Hemalatha Tran QUANTIFERON TB GOLD PLUSon 0 01-22-2022 QuantiFERON Criteria Comment Normal [facility] Comment on above: Result Comment: Elpidio tiFERON-TB [...] test. Performed By: #### Q NTTB #### [facility] [address] [place] [address] Dr. Hemalatha Tran QuantiFERON Incubation Incubation performed. Normal [facility] Comment on above: Performed By: #### Q NTTB #### [facility] [address] [place] [address] Dr. Hemalatha Tran QuantiFERON Mitogen Value >10.00 Normal [facility] Comment on above: Performed By: #### Q NTTB #### [facility] [address] [place] [address] Dr. Hemalatha Tran QuantiFERON Nil Value 0.02 IU/mL Normal [facility] Comment on above: Performed By: #### Q NTTB #### [facility] [address] [place] [address] Dr. Hemalatha Tran QuantiFERON TB1 Ag Value 0.03 IU/mL Normal [facility] Comment on above: Performed By: #### Q NTTB #### [facility] [address] [place] [address] Dr. Hemalatha Tran QuantiFERON TB2 Ag Value 0.02 IU/mL Normal [facility] Comment on above: Performed By: #### Q NTTB #### [facility] [address] [place] [address] Dr. Hemalatha Tran QuantiFERON-TB Gold Plus Negative Normal Negative [facility] Comment on above: Result Comment: No r esponse to M tuberculosis antigens detected. Infection with M tuberculosis is unlikely, but high risk individuals should be considered for additional testing (ATS/IDSA/CDC Clinical Practice Guidelines, 2017). The reference range is an Antigen minus Nil result of <0.35 IU/mL. Chemiluminescence immunoassay methodology Performed By: #### Q NTTB #### [facility] [address] [place] [address] Dr. Hemalatha Tran PROF CHEM 8 (BAS METB)on Anion gap [Moles/Vol] 13.9 mmol/L Normal [facility] Comment on above: Performed By: #### P SAD #### [facility] [address] [place] [address] Dr. Hemalatha Tran Calcium [Mass/Vol] 8.7 mg/dL Normal 8.5-10.1 [facility] Comment on above: Performed By: #### P SAD #### [facility] [address] [place] [address] Dr. Hemalatha Tran Chloride [Moles/Vol] 103 mmol/L Normal 98-107 [facility] Comment on above: Performed By: #### P SAD #### [facility] [address] [place] [address] Dr. Hemalatha Tran CO2 [Moles/Vol] 26.8 mmol/L Normal 21.0-32.0 [facility] Comment on above: Performed By: #### P SAD #### [facility] [address] [place] [address] Dr. Hemalatha Tran Creatinine [Mass/Vol] 1.35 mg/dL Critically high 0.70-1.30 [facility] Comment on above: Performed By: #### P SAD #### [facility] [address] [place] [address] Dr. Hemalatha Tran EGFR-AF EGYPTIAN >60 Normal >=60 [facility] Comment on above: Performed By: #### P SAD #### [facility] [address] [place] [address] Dr. Hemalatha Tran EGFR-NON AF EGYPTIAN 52 mL/min/1.73m2 Critically low >=60 [facility] Comment on above: Performed By: #### P SAD #### [facility] [address] [place] [address] [address] Hemalatha Tran Glucose [Mass/Vol] 119 mg/dL Critically high 74-106 [facility] Comment on above: Performed By: #### P SAD #### [facility] [address] [place] [address] [address] Hemalatha Tran Potassium [Moles/Vol] 3.7 mmol/L Normal 3.5-5.1 [facility] Comment on above: Performed By: #### P SAD #### [facility] [address] [place] [address] [address] Hemalatha Tran Sodium [Moles/Vol] 140 mmol/L Normal 136-145 [facility] Comment on above: Performed By: #### P SAD #### [facility] [address] [place] [address] [address] Hemalatha Tran Urea nitrogen [Mass/Vol] 16.0 mg/dL Normal 7.0-18.0 [facility] Comment on above: Performed By: #### P SAD #### [facility] [address] [place] [address] [address] Hemalatha Tran Urea nitrogen/Creatinin e [Mass ratio] 11.9 mg/mg Normal [facility] Comment on above: Performed By: #### P SAD #### [facility] [address] [place] [address] [address] Hemalatha Tran MR prostate wo/w conon 09-27 MR prostate wo/w con [facility] [address] MRI Report Signed Patient: Jun Walls MR#: [id number] : 1950 Acct:[id number] Age/Sex: 70 / M ADM Date: 09/23/21 Loc: MR Room: Type: [facility] Attending Dr: Geovanni Cuenca Jr, MD Ordering Provider: Geovanni Cuenca Jr, MD, [facility] Date of Service: 09/23/21 MR/MR prostate wo/w [...] Diehl Jr., D.OFrancisco09/27/2021 2:21 PM Dictation Location: [place] [address] Transcribed By: [facility] 09/27/21 1421 Dictated By: Bobby Diehl Jr, DO 09/27/21 1407 Signed By: 09/27/21 1421 Normal [facility] ISTAT XRay CREon 09-23-2021 Creatinine [Mass/Vol] 1.3 mg/dL Normal 0.6-1.3 [facility] Comment on above: Result Comment: ER/E SD physician is notified/shown all ISTAT results. Critical values may be confirmed by laboratory testing if deemed necessary by ER attending doctor. Performed By: #### I SCRE #### [facility] [address] Point of Care testing , ISTAT GFR ( > 60 Normal [facility] Comment on above: Result Comment: GFR estimated reference range: According to KDOQI guidelines, <60 ml/min/1.73m2 is sufficient to diagnose a patient with chronic kidney disease. PERFORMED BY: [place] [address] PATHOLOGIST [employer] MELVI WELDON M.D. Performed By: #### I SCRE #### [facility] [address] Point of Care testing , ISTAT GFR (Non- Am 54 Normal [facility] Comment on above: Performed By: #### I SCRE #### [facility] [address] [place] [address] Point of Care testing , Operative Reporton Operative Report MR#: [id number] [facility] Pt. Name: Jun Walls Room #: 0C Discharge Date: Birthdate: 1950 OPERATIVE REPORTDATE OF SURGERY: 07/17/2017SURGEON: Rohit Vazquez M.D.PREOPERATIVE DIAGNOSIS: Dupuytren's contracture of left long and smallfingers.POSTOPERATIVE DIAGNOSIS: Dupuytren's contracture of left long and smallfingers.PROCEDURES: Partial palmar fasciectomy involving the palm only on the leftlong and small fingers.MEDICAL SALES SPECIALIST: Dr. jAith Amador.ANESTHESIA: Regional with an axillary block.INDICATION FOR [...] the pretendinous cord. Again, we found the neurovascularstructures, but they are well away from where [...] 07/17/2017/04:10 P/Rohit Vazquez M.D.Date Trans: 07/17/2017 09:12 P/mmoDN_JN:[id number]: Benigno Escobar M.D. [address], [facility] [address] Normal [facility] POC GLUCOSE LABon 07-17-2017 Glucose mass conc 110 mg/dL High 70-100 [facility] Comment on above: Performed By: #### 8 5499 ####[facility] Vital Signs Date Time Vital Sign Value Performing Clinician Elena hatfield 01-11-2024 09:58-0400 Blood Pressure Location BARBARA CHAVES [facility] 01-11-2024 09:58-0400 Body temperature 98.6 [degF] BARBARA CHAVES [facility] 01-11-2024 09:58-0400 Diastolic blood pressure 73 mm[Hg] BARBARA CHAVES [facility] 01-11-2024 09:58-0400 Heart rate 54 /min BARBARA CHAVES [facility] 01-11-2024 09:58-0400 Respiratory rate 16 /min BARBARA CHAVES [facility] 01-11-2024 09:58-0400 Systolic blood pressure 120 mm[Hg] BARBARA CHAVES [facility] 12-26-2022 13:15-0400 Blood Pressure Location Jacoby ZHENG [facility] 12-26-2022 13:15-0400 Diastolic blood pressure 70 mm[Hg] Jacoby ZHENG [facility] 12-26-2022 13:15-0400 Heart rate 68 /min Jacoby ZHENG [facility] 12-26-2022 13:15-0400 Respiratory rate 16 /min Jacoby ZHENG [facility] 12-26-2022 13:15-0400 Systolic blood pressure 130 mm[Hg] Jacoby ZHENG [facility] 11-09-2021 11:13-0400 Blood Pressure Location Geovanni Cuenca Jr. [facility] 11-09-2021 11:13-0400 Diastolic blood pressure 82 mm[Hg] Geovanni Cuenca Jr. [facility] 11-09-2021 11:13-0400 Heart rate 76 /min Geovanni Cuenca Jr. [facility] 11-09-2021 11:13-0400 Systolic blood pressure 140 mm[Hg] Geovanni Cuenca Jr. [facility] 10-05-2021 09:48-0400 Diastolic blood pressure 92 mm[Hg] Geovanni Cuenca Jr. [facility] 10-05-2021 09:48-0400 Mean blood pressure 110 mm[Hg] Geovanni Cuenca Jr. [facility] 10-05-2021 09:48-0400 Systolic blood pressure 145 mm[Hg] Geovanni Cuenca Jr. [facility] 10-05-2021 09:46-0400 Blood Pressure Location Geovanni Cuenca Jr. [facility] 10-05-2021 09:46-0400 Diastolic blood pressure 96 mm[Hg] Geovanni Cuenca Jr. [facility] 10-05-2021 09:46-0400 Heart rate 72 /min Geovanni Cuenca Jr. [facility] 10-05-2021 09:46-0400 Respiratory rate 16 /min Geovanni Cuenca Jr. [facility] 10-05-2021 09:46-0400 Systolic blood pressure 155 mm[Hg] Geovanni Cuenca Jr. [facility] 09-07-2021 08:18-0400 Blood Pressure Location Geovanni Cuenca Jr. [facility] 09-07-2021 08:18-0400 Diastolic blood pressure 96 mm[Hg] Geovanni Cuenca Jr. [facility] 09-07-2021 08:18-0400 Heart rate 58 /min Geovanni Cuenca Jr. [facility] 09-07-2021 08:18-0400 Systolic blood pressure 148 mm[Hg] Geovanni Cuenca Jr. [facility] Encounters Encounter Date Encounter Type Care Provider Facility Start: 10-07-2024 End: 10-07-2024 Jian Marino MD Work Phone: [facility] Start: 10-07-2024 End: 10-07-2024 Jian Marino MD Work Phone: [facility] Start: 10-07-2024 End: 10-07-2024 Office outpatient visit 10 minutes Joanie Marino MD Work Phone: [facility] Comment on above: Psoriasis vulgaris ( CMS/HCC) (Primary Dx) Start: 10-07-2024 End: 10-07-2024 ambulatory JOANIE MARINO Not Available Start: 01-11-2024 End: 01-11-2024 ambulatory SAY CHAVES Facility:[facility] Start: 01-11-2024 End: 01-11-2024 Patient encounter procedure BARBARA CHAVES [facility] Start: 12-26-2022 End: 12-26-2022 Patient encounter procedure Jacoby ZHENG [facility] Start: 07-19-2022 End: 07-20-[address] DOCTOR HERNANDEZ Facility:[facility] Start: 01-20-2022 End: 01-21-[address] DOCTOR HERNANDEZ Facility:[facility] Start: 11-15-2021 End: 11-15-[address] BENIGNO ESCOBAR . Facility:[facility] Start: 11-09-2021 End: 11-09-2021 Patient encounter procedure Geovanni Cuenca Jr. [facility] Start: 10-20-2021 End: 10-20-[address] GEOVANNI Singh Facility:[facility] Start: 10-20-2021 Encounter for preprocedural cardiovascular examination DR GEOVANNI Singh [facility] Start: 10-20-2021 Encounter for preprocedural laboratory examination DR GEOVANNI Singh [facility] Start: 10-16-[address] GEOVANNI Singh Facility:[facility] Start: 10-14-2021 End: 10-15-[address] GEOVANNI Singh Facility:[facility] Start: 10-14-2021 End: 10-15-2021 Encounter for preprocedural laboratory examination DR GEOVANNI Singh Facility:[facility] Start: 10-05-2021 End: 10-05-2021 Patient encounter procedure Geovanni Cuenca Jr. [facility] Start: 09-23-2021 End: 09-23-2021 Patient encounter procedure MD Benigno Escobar Work Phone: [facility] [place] Start: 09-07-2021 End: 09-07-2021 Patient encounter procedure Geovanni Cuenca Jr. [facility] Start: 09-04-2021 End: 09-05-[address] GEOVANNI Singh Facility: Start: 07-17-2017 End: 07-18-2017 Ambulatory ROHIT VAZQUEZ Facility:[facility] Start: 05-29-2017 Patient encounter status MD Jo Work Phone: [facility] Start: 04-05-2017 End: 04-06-2017 Ambulatory DEFAULT PHYSICIAN Facility:[facility] Procedures Date Procedure Procedure Detail Performing Clinician Start: 07-19-[address] SUDEEP ESCOBAR . Comment on above: Performed By: #### P SASC #### [facility] [address] [place] [address] Dr. Hemalatha Tran Start: 10-20-2021 MRI-US fusion guided transperineal biopsy of prostate Jacoby ZHENG Start: 09-04-[address] SUDEEP ESCOBAR . Comment on above: Performed By: #### P SAD #### [facility] [address] [place] [address] Dr. Hemalatha Tran Start: 07-03-2019 Transurethral prostatectomy Geovanni Cuenca Jr. Start: 07-19-2018 Cystoscopy Geovanni navarro Jr. Start: 07-17-2017 ANESTH LOWER ARM SURGERY CIELO DELMA Start: 07-17-2017 RELEASE PALM CONTRACTURE ROHIT VAZQUEZ Start: 10-04-2013 Transrectal biopsy o f prostate using ultrasound guidance Geovanni Cuenca Jr. Endoscopy and biopsy of upper gastrointestinal tract Geovanni Cuenca Jr. Procedure on hand Geovanni navarro Jr. Plan of Treatment Date Care Activity Detail Author Start: 04-07-2025 End: 04-07-2025 Patient encounter procedure 04/07/2025 10:00 AM EST Office Visit [facility] [address] [place] [id number] Joanie Marino MD [address] [place] [address] [facility] Start: 01-27-2025 Influenza vaccination Influenz a Vaccine (Season Ended) [facility] Start: 10-07-2024 End: 10-07-2024 Patient encounter procedure 10/07/2024 10:15 AM EDT Office Visit [facility] [address] [place] [address] Joanie Marino MD [address] [place] [address] Arrived [facility] Comment on above: Arrived Start: 09-23-2021 MR prostate wo/w con MR prostate wo/ w con [facility] Start: 1998 Pneumococcal Vaccine : 65+ Years (1 of 1 - PCV) Pneumococcal Vaccine: 65+ Years (1 of 1 - PCV) [facility] Start: 1950 Screening for malign ant neoplasm of colon [facility] Immunizations Immunization Date Immunization Notes Care Provider Fa cility 10-07-2021 SARS-CoV-2 mRNA (jitbpwyener-ydft-oppl ose) vaccine Jacoby ZHENG [facility] Comment on above: Result Comment: 2022: TPV70 09-16-2021 SARS-CoV-2 mRNA (hcyjlcxfvbe-guog-whnm ose) vaccine Jacoby ZHENG [facility] Comment on above: Result Comment: 2022: TPV70 NEGATED: Highlighted row has not occurred!09-07-2021 SARS-CoV-2 (COVID-19) Ad26 vaccine, recombinant Geovanni Cuenca Jr. [facility] Georgie Payers Date Payer Category Payer Unknown [id number] 2021 Private Health Insurance [id number] 2017 Medicare MEDICARE [id number] 1959 Medicare [id number] 1959 Unknown [id number] 1950 Unknown [id number]. 1950 Unknown [id number] [id number]. 1950 Unknown [id number] [id number]. 59 1950 Unknown [id number] [id number]. 59 1950 Unknown [id number] [id number]. 59 1950 Unknown [id number] [id number]. 59 1950 Unknown [id number]. 593 1950 Unknown [id number] [id number]. 593 1950 Unknown [id number] [id number]. 727 1950 Unknown [id number]. 1259 Self-pay Self Pay [id number] Unknown [id number] Unknown Social History Date Type Detail Facility Start: 09-07-2021 End: 10-05-2023 Tobacco smoking status Never smoked tobacco (finding) [facility] Tobacco smoking status Never [facility] Start: 10-05-2023 End: 10-07-2024 Sex Assigned At Male [facility] Start: 1950 Sex Assigned At Male [facility] Start: 10-05-2023 Tobacco use and exposure Smokeless tobacco non-user [facility] Start: 10-05-2023 End: 10-07-2024 History of Social function [facility] Start: 1950 Sex assigned at Not on file [facility] NEGATED: Highlighted rowStart: NINF History of tobacco use Passive smoker [facility] Functional Status Date Assessment Result Facility 01-11-2024 Functional Status N/A [facility] 12-26-2022 Functional Status N/A [facility] 11-09-2021 Functional Status N/A [facility] Clinical Notes 09-07-2021 to 10-07-2024 Joanie Marino MD - 10/07/2024 10:15 AM EDT Note Date & Type Note Facility 10-07-2024 History of Present illness Narrative Follow up Diagnosis: Psoriasis Location: Bilateral legs, previous nail involvement Last visit: 1 year ago Symptoms: No flares, joint pain improved, mild today Status: Clear today Current treatment: Cosentyx 300 mg every 28 days- patient no longer qualified with [employer] PAP- he has been without drug for almost 6 months - patient has remained clear, mild joint pain. All pertinent medical history, medications, and allergies were reviewed. General Exam: alert , oriented to person, place, and time , normal affect, well appearing Unaccompanied A focused exam completed based on patient reported problems, see below: Skin Exam 1. PSORIASIS VULGARIS (CMS/HCC) Left Forearm - Anterior, Left Lower Leg - Anterior, Right Forearm - Anterior, Right Lower Leg - Anterior Clear today. BSA 0%. Patient admits mild joint pain, tolerable. The patient was informed that psoriasis is a chronic condition that can be controlled but not cured. Patient is currently clear. Discussed patients off of biologic therapy stay clear on average for 6 months to a year, then symptoms typically return. Patient prefers to follow up in 6 more months to discuss treatment with a biologic when/if symptoms return. Patient can follow up sooner if symptoms return before next appointment to discuss a new biologic. Next Visit: 6 months documented in this encounter [facility] 01-11-2024 Evaluation + Plan note Diagnostic Tests PendingPSA Total 01/11/24 [facility] 01-11-2024 Hospital Discharge instructions Patient Education 01/11/2024 10:20:34 Prostate Cancer Screening Prostate Cancer Screening Prostate [...] treatment? Where to find more information The [place] [employer]: www.cancer.org [place] [employer]: www.auanet.org Contact a health care [...] provider. Document Revised: 11/08/2021 Document Reviewed: 11/08/2021 Blank Patient Education 2022 ice. Follow Up Care 12/26/2022 14:27:26 With:ANDIE DEAL, BARBARA Saavedra, URL Address: [address] [place] [address] When: Unknown Comments:PSA in 1 year [facility] [employer] 01-11-2024 Note Patient Education Oncology Prostate Cancer Screening Prostate cancer screening is [...] recommendations. In general, screening is recommended if: ? You are age 50 to 70 and [...] have a 10- to 15-year life expectancy. ? You are younger than age 50, and you have these risk factors: ? Having a father, brother, or uncle who has been diagnosed with prostate cancer. The risk is higher if your family member's cancer occurred at an early age or if you have multiple family members with prostate cancer at an early age. ? Being a male who is Black or is of [place] or sub-Saharan descent. In general, screening is not recommended if: ? You are younger than age 40. ? You are between the ages of 40 and 49 and you have no risk factors. ? You are 70 years of age or [...] high PSA levels may be caused by: ? Prostate cancer. ? An enlarged prostate that is not caused by cancer (benign prostatic hyperplasia, or BPH). This condition is very common in older men. ? A prostate gland infection (prostatitis) or urinary tract infection. ? Certain medicines such as male hormones (like [...] you may need more tests, such as: ? A physical exam to check the size of your prostate gland, if not done as part of screening. ? Blood and imaging tests. ? A procedure to remove tissue samples from your prostate gland for testing (biopsy). This is the only way to know for certain if you have prostate cancer. What are the benefits of prostate cancer screening? ? Screening can help to identify cancer at an early stage, before symptoms start and when the cancer can be treated more easily. ? There is a small chance that screening [...] Questions to ask your health care provider ? When should I start prostate cancer screening? ? What is my risk for prostate cancer? ? How often do I need screening? ? What type of screening tests do I need? ? How do I get my test results? ? What do my results mean? ? Do I need treatment? Where to find more information ? The [place] [employer]: www.cancer.org ? [place]: www.auanet.org Contact a health care provider if: ? You have difficulty urinating. ? You have pain when you urinate or ejaculate. ? You have blood in your urine or semen. ? You have pain in your back or in the area of your prostate. Summary ? Prostate cancer is a common type of cancer in men. The prostate gland is located below the bladder and in front of the rectum. (more content not included)... [facility] 12-26-2022 Hospital Discharge instructions Patient Education 12/26/2022 [...] treatment? Where to find more information The [place] [employer]: www.cancer.org [place]: www.auanet.org Contact a health care [...] provider. Document Revised: 11/08/2021 Document Reviewed: 11/08/2021 [employer] Patient Education 2022 ice. Follow Up Care 11/09/2021 12:19:58 With:ROJELIO OWEN, Jacoby Henry, URL Address: [facility] [address], [place] [address] [phone] When: Unknown Comments:1 yr w/ PSA [facility] [place] 11-09-2021 Hospital Discharge instructions Patient Education 11/09/2021 12:15:12 Prostate Cancer [...] one of these risk factors: ?Being of -[place] descent. ?Having a family history of prostate [...] you: Are older than age 55. Are -[place]ian. Have a father, brother, or uncle who [...] 02/23/2018 Document Revised: 04/27/2018 Document Reviewed: 02/23/2018 [employer] Patient Education 2019 ice. Follow Up Care 10/07/2021 10:31:59 With:Bang Schulte MD, Geovanni Bowen URO Address: [facility] [address] , [place] [address]- When:Within 1 Year(s) Comments:w/ PSA f/t [facility] 10-05-2021 Hospital Discharge instructions Patient Education 10/05/2021 10:04:45 Prostate Cancer [...] one of these risk factors: ?Being of -[place] descent. ?Having a family history of prostate [...] you: Are older than age 55. Are -[place]ian. Have a father, brother, or uncle who [...] 02/23/2018 Document Revised: 04/27/2018 Document Reviewed: 02/23/2018 [employer] Patient Education 2020 ice. Follow Up Care 09/28/2021 11:22:42 With:Bang Schulte MD, Geovanni Bowen, URO Address: [facility] [address], [place] [address]- When: Unknown Comments:schedule follow up after bx. [facility] [place] 09-07-2021 Hospital Discharge instructions Patient Education 09/07/2021 08:42:57 Prostate-Specific Antigen [...] including vitamins, herbs, eye drops, creams, and gnbk-tyg-lnzxmeh medicines. This also includes: ?Medicines to assist [...] 06/17/2005 Document Revised: 04/27/2018 Document Reviewed: 02/19/2018 [employer] Patient Education 2020 ice. 09/07/2021 08:42:38 Prostate-Specific Antigen Test Prostate-Specific Antigen [...] including vitamins, herbs, eye drops, creams, and rhja-khl-prphqcr medicines. This also includes: ?Medicines to assist [...] 06/17/2005 Document Revised: 04/27/2018 Document Reviewed: 02/19/2018 [employer] Patient Education 2020 ice. Follow Up Care 09/03/2020 09:02:07 With:Bang Schulte MD, Geovanni Bowen, URO Address: [facility] [address], [place] [address]- When:10/05/2021 Comments:to review MRI results [facility] Evaluation + Plan note No data available for this section [facility] Evaluation + Plan note Future Appointments Appointment Date:11/15/2022 08:00:00 AM Scheduled Provider:Bang Schulte MD, Geovanni Bowen Location:[facility] Appointment Type:URO Office Visit Diagnostic Tests PendingPSA Free & Total 05/29/22 [facility] Evaluation + Plan note Future Appointments Appointment Date:12/29/2023 08:30:00 AM Scheduled Provider:Jacoby ZHENG MD Location:[facility] Appointment Type:URO Office Visit Diagnostic Tests PendingPSA Total 12/26/22 [facility] Evaluation note No assessment inform ation available [facility] Work Phone: Evaluation note Diagnosis Psoriasis vulgaris (CMS/HCC)- Primary Other psoriasis [facility] No data available for this section [facility] Summary Purpose Family History Relationship Condition Age at Onset Recorded Date/T cielo father Leukemia Unknown Not Specified Cerebrovascular accident (CVA) Unknown Advance Directives Advance Directive Response Recorded Date/ Time Advance Directives No May 29, 2017 11:04am Chief Complaint and Reason for Visit Chief Complaint elevated psa bph w/u rinary obstruction Additional Source Comments (unrecognized sect ion and content) No Status Records FoundNo Status Records FoundNo Status Records FoundNo Status Records FoundNo Status Records Found INFORMATION SOURCE (unrecogn ized section and content) DATE CREATED AUTHOR 11/17/2017 [facility] DATE CREATED AUTHOR AUTHOR'S ORGANIZ ATION 10/03/2021 [facility] DATE CREATED AUTHOR AUTHOR'S ORGANIZ ATION 07/21/2022 [facility] [place] [facility] DATE CREATED AUTHOR AUTHOR'S ORGANIZ ATION 01/15/2024 [facility] DATE CREATED AUTHOR AUTHOR'S ORGANIZ ATION 10/07/2024 [facility] [employer] Care Teams (unrecognized sec tion and content) Team Status: Inactive Member Role Status Dates Benigno Escobar MD Primary Care Provider Active Geovanni Cuenca Jr, MD Attending Provider Active Team Status: Active Member Role Status Dates Benigno Escobar MD Primary Care Provider Active Goals (unrecognized section and content) Goals may be documented in a n alternate section Reason for Visit (unrecogniz ed section and content) Reason Comments Psoriasis FOR RECORDS PERTAINING TO PATIENTS WHO ARE [...] BE BASED ON THE PRIMARY CLINICAL RECORDS. [facility]. provides no warranty or guarantee of the accuracy or completeness of information in this document.
--- NOTE | 2025-01-15 10:25 | XR_ITS ---
[address] [address] Patient Name: NANCY WALLS MRN: [id number] date: 1950 Sex: M Assigned Patient Location: [facility] Current Patient Location: [facility] Accession/Order Number: [id number] Exam Date: 01/15/2025 12:52 Report Date: 01/15/2025 12:56 At the request of: BENIGNO ZALDIVAR MD Procedure: XR ribs RT 2V PA AND LATERAL CHEST/RIGHT RIBS SERIES: CLINICAL HISTORY: Chest Wall Pain COMPARISON: None FINDINGS: Mildly prominent cardiomediastinal silhouette. Lungs are clear. No effusion or pneumothorax. Right upper lung calcified granuloma. No displaced right-sided rib fractures. Degenerative changes of the thoracic spine. IMPRESSION: NO ACUTE CARDIOPULMONARY ABNORMALITY. NEGATIVE ACUTE DISPLACED RIB FRACTURE. Impression dictated by: Ryan Salazar M.D. 01/15/2025 12:56 PM Dictation Location: [place] [address] Electronically authenticated by: [id number] Y Date: 01/15/2025 12:56
--- NOTE | 2025-01-15 10:25 | XR_ITS ---
[address] [address] Patient Name: NANCY WALLS MRN: [id number] date: 1950 Sex: M Assigned Patient Location: [facility] Current Patient Location: [facility] Accession/Order Number: [id number] Exam Date: 01/15/2025 12:52 Report Date: 01/15/2025 12:56 At the request of: BENIGNO ZALDIVAR MD Procedure: XR ribs RT 2V PA AND LATERAL CHEST/RIGHT RIBS SERIES: CLINICAL HISTORY: Chest Wall Pain COMPARISON: None FINDINGS: Mildly prominent cardiomediastinal silhouette. Lungs are clear. No effusion or pneumothorax. Right upper lung calcified granuloma. No displaced right-sided rib fractures. Degenerative changes of the thoracic spine. IMPRESSION: NO ACUTE CARDIOPULMONARY ABNORMALITY. NEGATIVE ACUTE DISPLACED RIB FRACTURE. Impression dictated by: Ryan Salazar M.D. 01/15/2025 12:56 PM Dictation Location: [place] [address] Electronically authenticated by: [id number] Y Date: 01/15/2025 12:56
== END 2025-01-15 10:18 | disposition home or self-care (01) ==
LOC: RAD 10:18
PROVIDERS: PCP Family Medicine; Visit Provider Family Medicine
DX: R07.89 Other chest pain (principal)
CPT/HCPCS: 71046; 71100